=== PATIENT | male | born 1955 | race Caucasian/White ===

== ENCOUNTER 2019-12-29 08:22 | Outpatient (CLI) | payer MEDICARE, SELFPAY ==
--- NOTE | ~2019-12-29 | XR_ITS ---
EXAMINATION: XR knee LT 3V DATE: 12/29/2019 08:54 INDICATION: Left knee pain. TECHNIQUE: 3 views of left knee were obtained. COMPARISON: None. FINDINGS: Bone alignment is normal. No fracture. There is mild osteoarthritis of medial and patellofe moral compartments. No knee joint effusion. IMPRESSION: 1. Mild left knee osteoarthritis. Reviewed, dictated and finalized at location A. CHANGER
[2019-12-29 09:16] LABS: Hemoglobin A1C 11.3 % (<5.7)
== END 2019-12-29 08:23 | disposition home or self-care (01) ==
PROVIDERS: PCP Family Medicine; Visit Provider Family Medicine
DX: E11.59 Type 2 diabetes mellitus with other circulatory complications (principal); I10 Essential (primary) hypertension; M25.562 Pain in left knee
CPT/HCPCS: 36415; 73562; 83036

== ENCOUNTER 2020-07-10 09:07 | Outpatient (CLI) | payer MEDICARE, SELFPAY ==
[2020-07-10 09:18] LABS: Basophils Absolute Auto 0.04 K/mm3 (0.00-0.10); Basophils Percent Auto 0.8 % (0.0-1.0); Eosinophils Absolute Auto 0.13 K/mm3 (0.02-0.50); Eosinophils Percent Auto 2.6 % (1.0-6.0); Hematocrit 42.2 % (40.0-54.0); Hemoglobin 14.4 g/dL (14.0-18.0); Immature Granulocyte Absolute 0.02 K/mm3 (0.00-0.00); Immature Granulocyte Percent A 0.4 % (0.0-0.0); Lymphocytes Absolute Auto 1.58 K/mm3 (1.10-4.50); Lymphocytes Percent Auto 31.2 % (18.0-42.0); Mean Corpuscular HGB Conc 34.1 g/dL (32.0-36.0); Mean Corpuscular Hemoglobin 30.3 pg (27.0-31.0); Mean Corpuscular Volume 88.8 fL (78.0-102.0); Mean Platelet Volume 9.8 fl (8.7-11.0); Monocytes Absolute Auto 0.57 K/mm3 (0.10-0.90); Monocytes Percent Auto 11.2 % (2.0-11.0); Neutrophils Absolute Auto 2.7 K/mm3 (1.7-7.2); Neutrophils Percent Auto 53.8 % (50.0-70.0); Platelet Count Result 225 K/mm3 (150-420); Red Blood Count 4.75 M/mm3 (4.70-6.10); Red Cell Distribution Width 12.7 % (11.6-14.4); White Blood Count 5.1 K/mm3 (4.8-10.8)
[2020-07-10 09:39] LABS: Hemoglobin A1C 11.2 % (<5.7)
[2020-07-10 10:50] LABS: Alanine Aminotransferase 42 U/L (16-63); Albumin Level 3.6 g/dL (3.4-5.0); Alkaline Phosphatase 63 U/L (46-116); Anion Gap 7 mmol/L (8-16); Aspartate Amino Transferase 17 U/L (15-37); Bilirubin,Total 1.1 mg/dL (0.00-1.00); Blood Urea Nitrogen 14 mg/dL (7-18); Carbon Dioxide 29 mmol/L (21-32); Chloride 100 mmol/L (98-108); Cholesterol 213 mg/dL (0-200); Estimated Glomerular Filt Rate > 60; Glucose 343 mg/dL (70-99); HDL Direct 37 mg/dL (40-60); LDL Cholesterol Calculated 142 mg/dL (<130); Osmolality Calculated 296 mOsm/kg (285-295); Potassium 4.9 mmol/L (3.5-5.1); Sodium 136 mmol/L (136-145); Total Protein 6.7 g/dL (6.4-8.2); Triglycerides 171 mg/dL (0-150)
[2020-07-10 10:59] LABS: Thyroid Stimulating Hormone Reflex 1.61 u/IU/mL (0.36-3.74)
== END 2020-07-10 09:08 | disposition home or self-care (01) ==
LOC: CHSLAB 09:08
PROVIDERS: PCP Family Medicine; Visit Provider Family Medicine
DX: E11.65 Type 2 diabetes mellitus with hyperglycemia (principal); I10 Essential (primary) hypertension
CPT/HCPCS: 36415; 80053; 80061; 83036; 84443; 85025

== ENCOUNTER 2021-08-19 11:03 | Outpatient (CLI) | payer MEDICARE, SELFPAY ==
[2021-08-19 11:18] LABS: Hematocrit 40.7 % (37.0-46.0); Hemoglobin 13.4 g/dL (12.4-15.3); Mean Corpuscular HGB Conc 32.9 g/dL (32.0-36.0); Mean Corpuscular Hemoglobin 30.3 pg (27.0-31.0); Mean Corpuscular Volume 92.1 fL (78.0-102.0); Platelet Count Result 208 K/mm3 (150-420); Red Blood Count 4.42 M/mm3 (4.70-6.10); Red Cell Distribution Width 12.6 % (11.6-14.4)
[2021-08-19 11:22] LABS: Add Urine Microscopic? YES; Appearance Urine Clear (Clear); Bilirubin Urine Negative (Negative); Blood Urine Negative (Negative); Color Urine Light Yellow (Yellow); Glucose Urine UA 3+ (Negative); Ketones Urine Negative (Negative); Leukocyte Esterase Ur Negative (Negative); Nitrate Urine Negative (Negative); Protein Urine Negative (Negative); Urobilinogen Urine 0.2 mg/dL (0.2-1.0); pH Urine 5.5 (5.0-8.0)
[2021-08-19 11:27] LABS: Bacteria Urine None seen /hpf; RBC Urine None seen /hpf (0-2); WBC Urine None seen /hpf (0-3)
[2021-08-19 11:45] LABS: Alanine Aminotransferase 39 U/L (16-63); Albumin Level 3.3 g/dL (3.4-5.0); Alkaline Phosphatase 74 U/L (46-116); Anion Gap 4 mmol/L (8-16); Aspartate Amino Transferase 14 U/L (15-37); Bilirubin,Total 0.7 mg/dL (0.00-1.00); Blood Urea Nitrogen 21 mg/dL (7-18); Calcium 8.9 mg/dL (8.5-10.1); Carbon Dioxide 29 mmol/L (21-32); Chloride 100 mmol/L (98-108); Estimated Glomerular Filt Rate > 60; Osmolality Calculated 297 mOsm/kg (285-295); Potassium 5.3 mmol/L (3.5-5.1); Prostate Specific Antigen 1.6 ng/mL (< OR = 4.0); Sodium 133 mmol/L (136-145); Total Protein 6.9 g/dL (6.4-8.2)
[2021-08-19 11:50] LABS: CRP < 0.2 mg/dL (0.0-0.9); Glucose 419 mg/dL (70-99)
[2021-08-19 11:53] LABS: Thyroid Stimulating Hormone Reflex 1.82 u/IU/mL (0.36-3.74)
== END 2021-08-19 11:04 | disposition home or self-care (01) ==
LOC: CHSLAB 11:04
PROVIDERS: PCP Family Medicine; Visit Provider Family Medicine
DX: R63.4 Abnormal weight loss (principal); R35.1 Nocturia; E11.9 Type 2 diabetes mellitus without complications
CPT/HCPCS: 36415; 80053; 81001; 84153; 84443; 85027; 86140

== ENCOUNTER 2021-09-22 09:13 | Outpatient (CLI) | payer MEDICARE, SELFPAY ==
--- NOTE | ~2021-09-22 | XR_ITS ---
XR wrist RT 2V 09/22/2021 09:34 INDICATION: Right wrist pain PROCEDURE: 4 views right wrist COMPARISON: No prior studies for comparison. FINDINGS: Fracture, dislocation or subluxation is not identified. The soft tissues appear within norm al limits. No foreign bodies are identified. IMPRESSION: 1: NO ACUTE BONE OR JOINT ABNORMALITY IDENTIFIED. Reviewed, dictated and finalized at location B.
== END 2021-09-22 09:14 | disposition home or self-care (01) ==
LOC: CHSIMG 09:17
PROVIDERS: PCP Family Medicine; Visit Provider Nurse Practitioner Family
DX: S69.91XA Unspecified injury of right wrist, hand and finger(s), initial encounter (principal)
CPT/HCPCS: 73100

== ENCOUNTER 2021-10-29 10:33 | Outpatient (CLI) | payer MEDICARE, SELFPAY ==
--- NOTE | ~2021-10-29 | XR_ITS ---
XR knee LT 3V DATE: 10/29/2021 10:49 INDICATION: Injury 3 weeks ago. Left knee pain and swelling TECHNIQUE: AP, lateral, sunrise views COMPARISON: 12/29/2019 left knee FINDINGS: There is slight periarticular spurring at the patellofemoral and medial compartments. Joint spaces are well preserved. No fracture or dislocation or joint effusion is detected. No radiopaque interarticular loose body or chondral calcinosis. No periosteal reaction or bone destruction. IMPRESSION: Mild osteoarthritis Reviewed, dictated and finalized at location B. IMPRESSION: Mild osteoarthritis
== END 2021-10-29 10:34 | disposition home or self-care (01) ==
LOC: CHSIMG 10:36
PROVIDERS: PCP Family Medicine; Visit Provider Family Medicine
DX: M25.562 Pain in left knee (principal)
CPT/HCPCS: 73562

== ENCOUNTER 2021-11-04 08:33 | Outpatient (CLI) | payer MEDICARE, SELFPAY ==
--- NOTE | ~2021-11-04 | XR_ITS ---
XR knee LT 3V 11/04/2021 09:04 Indication: Left knee pain Procedure: 3 views left knee Comparison: 12/29/2019 Findings: No fracture, subluxation or dislocation. There is mild osteoarthritis. No significant joint effusion. Mild prepatellar soft tissue swelling. No discrete mass identified in the area of palpable concern. No foreign bodies. Impression: 1: No acute fracture. 2: Mild prepatellar soft tissue swelling. Reviewed, dictated and finalized at location B. Impression: 1: No acute fracture. 2: Mild prepatellar soft tissue swelling.
== END 2021-11-04 08:34 | disposition home or self-care (01) ==
LOC: CHSIMG 08:36
PROVIDERS: PCP Family Medicine; Visit Provider Family Medicine
DX: S80.252A Superficial foreign body, left knee, initial encounter (principal)
CPT/HCPCS: 73562

== ENCOUNTER 2021-11-14 08:52 | Outpatient (CLI) | payer MEDICARE, SELFPAY ==
--- NOTE | ~2021-11-14 | CT_ITS ---
EXAMINATION: CT knee LT wo con DATE: 11/14/2021 09:20 INDICATION: Infrapatellar foreign body at the anterior left knee. TECHNIQUE: High resolution computed tomography (CT) of the left knee was performed without intravenou s contrast. Additional sagittal and coronal reconstructions were performed. Automated exposure contro l and iterative reconstruction technique were employed. The dose-length product was 557.69 mGy-cm. COMPARISON: Left knee radiographs dated 10/29/2021 and 11/04/2021 FINDINGS: Bone alignment is normal. No fracture. Joint spaces appear normal on nonweightbearing imaging. No lef t knee joint effusion. There is prepatellar soft tissue swelling with approximately 3 x 3 x 1 cm ovoi d region of fluid density anterior to the inferior pole of the patella and proximal patellar tendon w hich could represent a hematoma/seroma or prepatellar bursitis soft tissues are otherwise unremarkabl e. No fracture fragments or foreign bodies identified. IMPRESSION: 1. 3 x 3 x 1 cm fluid collection anterior to the inferior patella and proximal patellar tendon which could represent a hematoma/seroma or prepatellar bursitis. No bone fragments or evident foreign ross s. 2. No left knee joint effusion or osseous abnormality. Reviewed, dictated and finalized at location A. IMPRESSION: 1. 3 x 3 x 1 cm fluid collection anterior to the inferior patella and proximal patellar tendon which could represent a hematoma/seroma or prepatellar bursitis . No bone fragments or evident foreign bodies. 2. No left knee joint effusion or osseous abnormality.
== END 2021-11-14 08:53 | disposition home or self-care (01) ==
LOC: CHSIMG 08:55
PROVIDERS: PCP Family Medicine; Visit Provider Family Medicine
DX: S80.252A Superficial foreign body, left knee, initial encounter (principal)
CPT/HCPCS: 73700

== ENCOUNTER 2022-01-29 11:02 | Emergency (ER) | payer MEDICARE, SELFPAY ==
[2022-01-29 11:14] VITALS: BP 156/74; PULSE 80; RESP 25; TEMP 36.4; O2SAT 97
--- NOTE | 2022-01-29 11:33 | ED.BACK ---
HPI - Back Pain/Injury General Stated Complaint: Back pain Time Seen by Provider: 01/29/22 11:27 Source: patient and family Mode of arrival: ambulatory Limitations: no limitations History of Present Illness HPI Narrative: This is a 66-year-old gentleman with a history of lower back pain presents after he was cutting wood with a 3 day history mid to lower back pain patient states that he followed with his chiropractor which gave him no relief. He rates the pain about 8/10 with no saddle paresthesias no sciatic pain or radiation. MD elicited complaint: back pain Pertinent past history: prior back pain Onset (ago): day(s) Timing: constant Severity: moderate Pain scale (0-10): 8 Quality: spasming Related Data Allergies Allergy/AdvReac Type Severity Reaction Status Date / Time No Known Allergies Allergy Verified 11/04/21 07:10 Review of Systems Review of Systems: All systems reviewed & are unremarkable except as noted in HPI and below PMFSH Past Medical History Medical History BMI 30.0-30.9,adult Cellulitis of finger of right hand Encounter for other specified surgical aftercare HTN (hypertension) Hypertension associated with type 2 diabetes mellitus Incarcerated ventral hernia Uncontrolled diabetes mellitus Surgical History Surgical History History of back surgery Family History Family History Mother Alzheimers disease Diabetes mellitus Father Diabetes mellitus Colon cancer Prostate carcinoma Coronary artery disease Sibling Diabetes mellitus Sibling Diabetes mellitus Sibling Diabetes mellitus Social History Social History Smoking packs per day: 2 Smoking cigarettes per day: 40.0 Years smoked: 2 Smoking pack-years: 4.00 Smoking status: Former smoker Tobacco type: cigarettes Second hand tobacco smoke exposure: Yes Alcohol intake: current Drinks per week: 1 Substance use: never Substance use type: does not use Gender identity (if verbalized by the patient): Male Spiritual care concerns: No Agree to blood products: Yes Exam Const: General: healthy appearing Nutritional Appearance: well nourished Limitations: no limitations HENMT: Head: normal to inspection Face/Nose/Sinus: Normal external nose present Mouth: Yes Normal oral and palatal mucosa present Eyes: Conjunctivae: conjunctivae normal Pupils: Equal, round and reactive pupils present EOM: EOMs intact bilaterally Direct Ophthalmoscopy: no photophobia Neck: Neck: normal visual inspection Chest: Chest palpation & inspection: normal inspection of the chest Resp: Effort & Inspection: normal respiratory effort Cardio: Rate: regular rate Rhythm: regular rhythm GI: Auscultation: normal bowel sounds : General: Yes bladder normal to palpation Back/Spine/Pelvis: Back: no CVA tenderness Skin: General skin exam: normal color Rashes: no rashes Wounds: no wounds Neuro: General: patient oriented x3 Cranial nerves: Yes Nystagmus not present Speech: normal speech Extrem: Other: Midback dist discomfort with some bilateral paravertebral tenderness with palpation Course Course Emergency Course: reassessment of patient pain level has improved with some muscle relaxant and IM Toradol Vital Signs Vital signs: Vital Signs Temperature 36.4 C 01/29/22 11:14 Pulse Rate 80 01/29/22 11:14 Respiratory Rate 25 H 01/29/22 11:14 Blood Pressure 156/74 H 01/29/22 11:14 Pulse Oximetry 97 01/29/22 11:14 Oxygen Delivery Room Air 01/29/22 11:14 Temperature 36.4 C 01/29/22 11:14 Pulse Rate 80 01/29/22 11:14 Respiratory Rate 25 H 01/29/22 11:14 Blood Pressure 156/74 H 01/29/22 11:14 Pulse Oximetry 97 01/29/22 11:14 Oxygen Delivery Room Air
[2022-01-29] MEDS: KETOROLAC (*BKC) 60 MG/2 ML VIAL IM (11:48)
[2022-01-29] MEDS: ORPHENADRINE CITRATE 30 MG/ML 2 ML VIAL 60 MG IM (11:49)
[2022-01-29 12:16] VITALS: BP 157/74; PULSE 80; RESP 20; TEMP 36.4; O2SAT 94
== END 2022-01-29 12:20 | disposition home or self-care (01) ==
LOC: CHSED 11:45
PROVIDERS: Emergency Provider Emergency Medicine; PCP Family Medicine
DX: M54.50 Low back pain, unspecified (principal); I10 Essential (primary) hypertension; Z87.891 Personal history of nicotine dependence
CPT/HCPCS: 96372; 99284; J1885; J2360

== ENCOUNTER 2022-05-18 09:00 | Outpatient (CLI) | payer MEDICARE, SELFPAY ==
[2022-05-18 19:31] LABS: Basophils Absolute Auto 0.1 K/mm3 (0.0-0.1); Basophils Percent Auto 1.2 % (0.2-1.2); Eosinophils Absolute Auto 0.2 K/mm3 (0-0.3); Eosinophils Percent Auto 4.2 % (0-4.4); Hematocrit 46.7 % (42.0-52.0); Hemoglobin 15.4 g/dL (14.0-18.0); Immature Granulocyte Absolute 0.02 K/mm3 (0.00-0.031); Immature Granulocyte Percent A 0.5 % (0-0.5); Lymphocytes Absolute Auto 1.49 K/mm3 (0.9-3.2); Lymphocytes Percent Auto 34.9 % (18.3-44.2); Mean Corpuscular Hemoglobin 30.7 pg (26-34); Mean Corpuscular Volume 93.2 fl (80-100); Mean Platelet Volume 10.9 fl (7.4-10.4); Monocytes Absolute Auto 0.5 K/mm3 (0.1-0.6); Monocytes Percent Auto 11.5 % (2.6-8.5); Neutrophils Percent Auto 47.7 % (45.5-73.1); Platelet Count Result 220 k/mm3 (150-375); Red Blood Count 5.01 M/mm3 (4.6-6.20); Red Cell Distribution Width 12.8 % (11.5-14.5); White Blood Count 4.3 K/mm3 (4.5-10.0)
[2022-05-18 20:13] LABS: Alanine Aminotransferase 33 U/L (6-50); Albumin Level 4.5 g/dL (3.5-5.1); Alkaline Phosphatase 89 U/L (38-126); Anion Gap 7 mmol/L (8-16); Aspartate Amino Transferase 23 U/L (17-59); Blood Urea Nitrogen 18 mg/dL (9-20); Calcium 9.3 mg/dL (8.4-10.2); Carbon Dioxide 30 mmol/L (22-30); Chloride 96 mmol/L (98-107); Cholesterol 285 mg/dL (0-200); Estimated Glomerular Filt Rate > 60; Glucose 458 mg/dL (65-110); HDL Direct 39 mg/dL; Potassium 4.8 mmol/L (3.4-5.0); Sodium 133 mmol/L (137-145); Triglycerides 193 mg/dL (<150)
[2022-05-18 20:20] LABS: Microalbumin Urine Random 10.5 mg/L (0-16.7)
[2022-05-18 20:24] LABS: LDL Cholesterol Direct 183 mg/dL
[2022-05-18 20:42] LABS: Prostate Specific Antigen 1.7 ng/mL (< OR = 4.0)
[2022-05-18 21:12] LABS: Hemoglobin A1C 13.6 % (<5.7)
[2022-05-18 21:18] LABS: Folic Acid 12.3 ng/mL (2.76->20)
[2022-05-20 13:22] LABS: Glutamic acid decarboxylase AA <5 IU/mL (<5)
[2022-05-21 03:43] LABS: LH 5.2 mIU/mL (1.6-15.2)
[2022-05-22 14:24] LABS: Testosterone Free 27.9 pg/mL (35.0-155.0); Testosterone Total 154 ng/dL (250-1100)
== END 2022-05-18 09:01 | disposition home or self-care (01) ==
LOC: ANHGOSHLAB 09:01
PROVIDERS: PCP Family Medicine; Visit Provider Internal Medicine
DX: E11.65 Type 2 diabetes mellitus with hyperglycemia (principal); E29.1 Testicular hypofunction; I10 Essential (primary) hypertension; R53.83 Other fatigue; R35.89 Other polyuria; Z12.5 Encounter for screening for malignant neoplasm of prostate
CPT/HCPCS: 36415; 80053; 80061; 82043; 82607; 82746; 83002; 83036; 84153; 84402; 84403; 84443; 85025; 86341

== ENCOUNTER 2022-09-16 11:28 | Emergency (ER) | payer MEDICARE, SELFPAY ==
[2022-09-16] VITALS (24 sets, daily range): BP systolic 105–137; BP diastolic 58–85; PULSE 70–83; RESP 14–26; TEMP 36.1; O2SAT 95–100
--- NOTE | ~2022-09-16 | CT_ITS ---
EXAMINATION: CT thoracic lumbar wo con DATE: 09/16/2022 13:11 INDICATION: Back injury. Fall. Neck pain. TECHNIQUE: Computed tomography (CT) of the thoracic and lumbar spine was performed without intravenou s contrast. Automated exposure control and iterative reconstruction technique were employed. The dose -length product was 1939.38 mGy-cm. COMPARISON: None FINDINGS: CT THORACIC SPINE: There is 5 degrees dextrocurvature of thoracic spine. There are Schmorl's nodes at multiple levels. There is mildly decreased disc height from T3-T4 through T7-T8. There is multilevel facet joint osteoarthritis, mild at most levels. There is severe facet joint osteoarthritis on the r ight at T1-T2 and T3-T4 and on the left at T2-T3. On the right, there is mild neural foraminal stenos is at T1-T2 and T3-T4. On the left, there is mild neural foraminal stenosis at T1-T2, T2-T3, and T3-T 4. There is mild central canal stenosis at T4-T5 and T6-T7. CT LUMBAR SPINE: Bone alignment is normal. There is mild chronic anterior wedging of L1 vertebral bod y. There is mildly decreased disc height at L1-L2, L2-L3, and L3-L4. The following disc levels are sp ecifically discussed: L1-L2: The disc is bulging. There is mild bilateral facet joint osteoarthritis. There is mild bilater al neural foraminal stenosis. There is mild central canal stenosis. L2-L3: The disc is bulging. There is mild bilateral facet joint osteoarthritis. There is mild bilater al neural foraminal stenosis. There is mild central canal stenosis. L3-L4: The disc is bulging. There is mild bilateral facet joint osteoarthritis. There is mild bilater al neural foraminal stenosis. There is mild central canal stenosis. L4-L5: The disc is bulging. There is mild bilateral facet joint osteoarthritis. There is moderate rig ht and mild left neural foraminal stenosis. There is mild central canal stenosis. L5-S1: The disc is bulging. There is mild bilateral facet joint osteoarthritis. There is mild right n eural foraminal stenosis. There is mild central canal stenosis. IMPRESSION: 1. No fracture. 2. Mild thoracic and lumbar spondylosis. Reviewed, dictated and finalized at location A.
--- NOTE | ~2022-09-16 | CT_ITS ---
EXAMINATION: CT brain wo con DATE: 09/16/2022 13:11 INDICATION: Neck pain post fall TECHNIQUE: Computed tomography (CT) of the head was performed without intravenous contrast. Sagittal and coronal reconstructions were performed. The mA was adjusted according to patient size. Iterative reconstruction technique was employed. The dose-length product was 681.00 mGy-cm. COMPARISON: head CT dated 05/15/2018 and MRI dated 05/16/2018 FINDINGS: No fracture. No acute intracranial hemorrhage, acute infarction or abnormal extra axial fluid collect ion. Again seen is a small lacunar infarct versus prominent perivascular space at the inferior left b christel ganglia. Ventricles are normal and symmetric. No mass/mass effect. The orbits, paranasal sinuses and mastoid air cells are normal. 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 IMPRESSION: 1. No fracture or acute intracranial process. 2. 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 Reviewed, dictated and finalized at location B. IMPRESSION: 1. No fracture or acute intracranial process. 2. Unchanged small old lacunar infarct versus prominent perivascular space at t he inferior left basal ganglia.
--- NOTE | ~2022-09-16 | CT_ITS ---
EXAMINATION: CT cervical spine wo con DATE: 09/16/2022 13:11 INDICATION: Neck pain. Fall. TECHNIQUE: Computed tomography (CT) of the cervical spine was performed without intravenous contrast. Automated exposure control and iterative reconstruction technique were employed. The dose-length pro duct was 374.70 mGy-cm. COMPARISON: None FINDINGS: There is 7 degrees dextrocurvature of cervical spine. There is mild chronic anterior wedgin g of T1 vertebral body. Intervertebral disc heights are normal. The following disc levels are specifi jasmyne discussed: C2-C3: There is no uncovertebral joint osteoarthritis. There is mild right facet joint osteoarthritis . There is no neural foraminal stenosis. There is no central canal stenosis. C3-C4: There is mild left uncovertebral joint osteoarthritis. There is mild right and moderate left f acet joint osteoarthritis. There is mild left neural foraminal stenosis. There is no central canal st enosis. C4-C5: There is mild left uncovertebral joint osteoarthritis. There is severe left facet joint osteoa rthritis. There is mild left neural foraminal stenosis. There is no central canal stenosis. C5-C6: There is no uncovertebral joint osteoarthritis. There is mild bilateral facet joint osteoarthr itis. There is no neural foraminal stenosis. There is no central canal stenosis. C6-C7: There is no uncovertebral joint osteoarthritis. There is mild bilateral facet joint osteoarthr itis. There is no neural foraminal stenosis. There is no central canal stenosis. C7-T1: There is no uncovertebral joint osteoarthritis. There is moderate bilateral facet joint osteoa rthritis. There is no neural foraminal stenosis. There is no central canal stenosis. IMPRESSION: 1. No fracture. 2. Mild cervical spondylosis. Reviewed, dictated and finalized at location A.
--- NOTE | 2022-09-16 12:51 | ED.FALL ---
HPI - Fall General Chief Complaint: Fall Stated Complaint: fall Time Seen by Provider: 09/16/22 12:04 History of Present Illness HPI Narrative: Patient is a 67-year-old male presenting with neck pain. Patient states that he had a fall several weeks ago after a refrigerator fell on him. States that he had some neck and back pain after that but he toughed it out. Unfortunately today he again slipped on some stairs striking his neck and lower back. He is unsure if he struck his head. No loss of consciousness. Since that time he has had severe neck and lower back pain. States that the pain radiates down his left shoulder. Took some Aleve earlier with some relief. Reports some numbness down his left arm but no weakness. No further complaints. Related Data Home Medications Medication Instructions Recorded Confirmed antiarthritic combination no.2 900 mg PO 05/18/22 08/03/22 mg tablet (glucosamine-chondroitin) cholecalciferol (vitamin D3) 125 125 mcg PO DAILY 05/18/22 08/03/22 mcg (5,000 unit) capsule magnesium citrate 100 mg capsule 100 mg PO DAILY 05/18/22 08/03/22 mecobalamin (vitamin B12) 2,500 mcg PO 05/18/22 08/03/22 mcg chewable tablet vitamin K2 100 mcg capsule 100 mcg PO DAILY 05/18/22 08/03/22 zinc acetate 50 mg (zinc) capsule 50 mg PO DAILY 05/18/22 08/03/22 (Galzin) Allergies Allergy/AdvReac Type Severity Reaction Status Date / Time No Known Allergies Allergy Verified 09/16/22 11:44 Review of Systems Review of Systems: All systems reviewed & are unremarkable except as noted in HPI and below PMFSH Past Medical History Medical History BMI 30.0-30.9,adult Cellulitis of finger of right hand Encounter for other specified surgical aftercare HTN (hypertension) Hyperlipidemia Hypertension associated with type 2 diabetes mellitus Incarcerated ventral hernia Uncontrolled diabetes mellitus Surgical History Surgical History History of back surgery Family History Family History Mother Alzheimers disease Diabetes mellitus Father Diabetes mellitus Colon cancer Prostate carcinoma Coronary artery disease Sibling Diabetes mellitus Sibling Diabetes mellitus Sibling Diabetes mellitus Social History Social History Smoking packs per day: 2 Smoking cigarettes per day: 40.0 Years smoked: 2 Smoking pack-years: 4.00 Smoking status: Former smoker Tobacco type: cigarettes Second hand tobacco smoke exposure: Yes Alcohol intake: current Drinks per week: 1 Substance use: never Substance use type: does not use Lack of Transportation: No Current Housing: Decline to Answer Concerned About Future Housing: Decline to Answer Difficulty Paying Gas/Electric Bills: Decline to Answer Difficulty Paying for Meds: Decline to Answer Currently Unemployed: Decline to Answer Education: Decline to Answer Difficulty w/ Childcare or Family Care: Decline to Answer Gender identity (if verbalized by the patient): Male Spiritual care concerns: No Agree to blood products: Yes Exam Narrative: GENERAL: Uncomfortable appearing, pleasant and cooperative HEAD: Normocephalic, atraumatic. EYES: PERRLA and EOMI. ENT: Nares clear, no rhinorrhea or epistaxis. Mucous membranes moist. NECK: C-collar in place, tenderness over lower cervical/upper thoracic spine BACK: Midline tenderness lower lumbar spine CHEST: Clear to auscultation. No respiratory distress. HEART: Regular rate and rhythm. ABDOMEN: Soft, nontender, nondistended EXTREMITIES: Normal range of motion. No edema. SKIN: Warm, dry, no rash. NEURO: No focal deficits. Alert and oriented x3. PSYCH: Normal mood and affect. Course Vital Signs Vital signs: Vital Signs Temper
[2022-09-16] MEDS: HYDROmorphone HCL INJ (*CRX) 1 MG/ML SYR 0.5 MG IV PUSH (12:57)
[2022-09-16] MEDS: LACTATED RINGERS 1,000 ML 999 ML IV CONT (14:53)
[2022-09-16] MEDS: KETOROLAC 30 MG/ML VIAL (*BKC) IV PUSH (14:54)
[2022-09-16] MEDS: LORazepam INJ (*CRX) 2 MG/ML VIAL 1 MG IV PUSH (14:54)
[2022-09-16] MEDS: CYCLOBENZAPRINE HCL 10 MG TABLET PO (17:40)
== END 2022-09-16 17:43 | disposition home or self-care (01) ==
PROVIDERS: Emergency Provider Emergency Medicine; PCP Internal Medicine
DX: S19.9XXA Unspecified injury of neck, initial encounter (principal); M62.838 Other muscle spasm; I10 Essential (primary) hypertension; E11.9 Type 2 diabetes mellitus without complications; I15.2 Hypertension secondary to endocrine disorders; E78.5 Hyperlipidemia, unspecified; M47.816 Spondylosis without myelopathy or radiculopathy, lumbar region; M47.812 Spondylosis without myelopathy or radiculopathy, cervical region; Z87.891 Personal history of nicotine dependence; Z79.4 Long term (current) use of insulin; Z79.84 Long term (current) use of oral hypoglycemic drugs; Z79.85 Long-term (current) use of injectable non-insulin antidiabetic drugs; W10.9XXA Fall (on) (from) unspecified stairs and steps, initial encounter
CPT/HCPCS: 70450; 72125; 72128; 72131; 96361; 96374; 96375; 99284; A9270; J1170; J1885; J2060; J7120

== ENCOUNTER 2022-09-20 09:48 | Emergency (ER) | payer MEDICARE, SELFPAY ==
--- NOTE | ~2022-09-20 | XR_ITS ---
EXAMINATION: XR foot LT min 3V DATE: 09/20/2022 11:01 INDICATION: Left foot pain and swelling, possible foreign body TECHNIQUE: Dorsoplantar, lateral, and 2 oblique views of the left foot were obtained. COMPARISON: 02/29/2016 FINDINGS: Bone alignment is normal. There is no acute fracture. There is mild osteoarthritis of multi ple interphalangeal joints. There is a 3 mm linear radiopaque foreign body projecting at the plantar aspect of the foot medial to the first proximal phalanx. IMPRESSION: 1. Linear radiopaque foreign body projecting in the plantar aspect of the first toe. 2. No acute osseous abnormality. Reviewed, dictated and finalized at location A.
--- NOTE | ~2022-09-20 | US_ITS ---
EXAMINATION: US venous doppler [facility] DATE: 09/20/2022 12:23 INDICATION: Left lower limb redness and swelling TECHNIQUE: Longoria scale images without and with compression and Doppler images of the left lower extrem ity veins were obtained. COMPARISON: None FINDINGS: The left common femoral vein, profunda femoral vein, femoral vein, popliteal vein, peroneal trunk, posterior tibial veins, and greater saphenous vein are patent. IMPRESSION: 1. Patent left lower extremity veins. No evidence of deep venous thrombosis. Reviewed, dictated and finalized at location A.
[2022-09-20 09:49] VITALS: BP 136/64; PULSE 80; RESP 20; TEMP 36.4; O2SAT 100
--- NOTE | 2022-09-20 10:24 | ED.WOUNDLAC ---
HPI - Wound/Laceration General Chief Complaint: Wound/Laceration Stated Complaint: infection in my foot Time Seen by Provider: 09/20/22 10:08 Source: patient Mode of arrival: ambulatory Limitations: no limitations History of Present Illness HPI narrative: Patient is a 67-year-old male, with PMH of DM, who presents to the ED with report of left foot and lower leg pain, swelling, redness. Patient reports he first noticed the pain and redness a few days ago. He did have a mechanical fall a few days ago and was seen here in the ED, diagnosed with a cervical strain. He was not having pain in his foot at that time. He reports the pain in his foot is worst around his first and second toes on the plantar surface. He denies stepping on anything that he is aware of. He has since developed worsening pain, swelling, redness streaking up his dorsal foot into his ankle and lower leg. Pain extending to his lower leg and calf. Patient denies any fevers. Related Data Home Medications Medication Instructions Recorded Confirmed antiarthritic combination no.2 900 mg PO 05/18/22 08/03/22 mg tablet (glucosamine-chondroitin) cholecalciferol (vitamin D3) 125 125 mcg PO DAILY 05/18/22 08/03/22 mcg (5,000 unit) capsule magnesium citrate 100 mg capsule 100 mg PO DAILY 05/18/22 08/03/22 mecobalamin (vitamin B12) 2,500 mcg PO 05/18/22 08/03/22 mcg chewable tablet vitamin K2 100 mcg capsule 100 mcg PO DAILY 05/18/22 08/03/22 zinc acetate 50 mg (zinc) capsule 50 mg PO DAILY 05/18/22 08/03/22 (Galzin) Allergies Allergy/AdvReac Type Severity Reaction Status Date / Time No Known Allergies Allergy Verified 09/16/22 11:44 Review of Systems Review of Systems: CONSTITUTIONAL: Denies fever, chills, or sweats. SKIN: See HPI. MUSCULOSKELETAL: See HPI. NEUROLOGIC: Denies tingling, numbness, or weakness. All systems reviewed & are unremarkable except as noted in HPI and below PMFSH Past Medical History Medical History BMI 30.0-30.9,adult Cellulitis of finger of right hand Encounter for other specified surgical aftercare HTN (hypertension) Hyperlipidemia Hypertension associated with type 2 diabetes mellitus Incarcerated ventral hernia Uncontrolled diabetes mellitus Surgical History Surgical History History of back surgery Family History Family History Mother Alzheimers disease Diabetes mellitus Father Diabetes mellitus Colon cancer Prostate carcinoma Coronary artery disease Sibling Diabetes mellitus Sibling Diabetes mellitus Sibling Diabetes mellitus Social History Social History Smoking packs per day: 2 Smoking cigarettes per day: 40.0 Years smoked: 2 Smoking pack-years: 4.00 Smoking status: Former smoker Tobacco type: cigarettes Second hand tobacco smoke exposure: Yes Alcohol intake: current Drinks per week: 1 Substance use: never Substance use type: does not use Lack of Transportation: No Current Housing: Decline to Answer Concerned About Future Housing: Decline to Answer Difficulty Paying Gas/Electric Bills: Decline to Answer Difficulty Paying for Meds: Decline to Answer Currently Unemployed: Decline to Answer Education: Decline to Answer Difficulty w/ Childcare or Family Care: Decline to Answer Gender identity (if verbalized by the patient): Male Spiritual care concerns: No Agree to blood products: Yes Exam Narrative: GENERAL: Well appearing, well-nourished, non-toxic, in no acute distress. HEAD: Normocephalic, atraumatic. NECK: Supple. No adenopathy, no masses. RESPIRATORY: Airway patent, respirations nonlabored. Clear to auscultation bilaterally, no rales, rhonchi, wheezing. CARDIOVASCULAR: Regular rate an
[2022-09-20 11:01] LABS: Basophils Percent Auto 0.5 % (0.2-1.2); Eosinophils Absolute Auto 0.1 K/mm3 (0-0.3); Eosinophils Percent Auto 1.3 % (0-4.4); Hematocrit 43.3 % (42.0-52.0); Hemoglobin 14.2 g/dL (14.0-18.0); Immature Granulocyte Absolute 0.05 K/mm3 (0.00-0.031); Immature Granulocyte Percent A 0.6 % (0-0.5); Lymphocytes Absolute Auto 1.36 K/mm3 (0.9-3.2); Lymphocytes Percent Auto 15.5 % (18.3-44.2); Mean Corpuscular HGB Conc 32.8 g/dl (32-36); Mean Corpuscular Hemoglobin 30.3 pg (26-34); Mean Corpuscular Volume 92.5 fl (80-100); Mean Platelet Volume 10.2 fl (7.4-10.4); Monocytes Percent Auto 11.4 % (2.6-8.5); Neutrophils Absolute Auto 6.2 K/mm3 (1.3-6.7); Neutrophils Percent Auto 70.7 % (45.5-73.1); Platelet Count Result 202 k/mm3 (150-375); Red Blood Count 4.68 M/mm3 (4.6-6.20); Red Cell Distribution Width 12.7 % (11.5-14.5); White Blood Count 8.8 K/mm3 (4.5-10.0)
[2022-09-20 11:11] LABS: Lactic Acid Reflex 0.8 mmol/L (0.7-2.0)
[2022-09-20 11:15] LABS: Alanine Aminotransferase 22 U/L (6-50); Albumin Level 4.2 g/dL (3.5-5.1); Alkaline Phosphatase 76 U/L (38-126); Anion Gap 5 mmol/L (8-16); Aspartate Amino Transferase 18 U/L (17-59); Bilirubin,Total 1.6 mg/dL (0.2-1.3); Blood Urea Nitrogen 17 mg/dL (9-20); CRP 7.7 mg/dL (<1.0); Calcium 9.7 mg/dL (8.4-10.2); Carbon Dioxide 32 mmol/L (22-30); Chloride 96 mmol/L (98-107); Estimated CRCL calculation 116 ml/min; Estimated Glomerular Filt Rate > 60; Glucose 243 mg/dL (65-110); Potassium 4.3 mmol/L (3.4-5.0); Sodium 133 mmol/L (137-145)
[2022-09-20 11:32] LABS: Erythrocyte Sedimentation Rate 73 mm/hr (0-20)
[2022-09-20] MEDS: DOXYCYCLINE HYCLATE 100 MG TABLET PO (13:19)
[2022-09-20] MEDS: levoFLOXacin 750 MG TABLET PO (13:20)
== END 2022-09-20 13:37 | disposition home or self-care (01) ==
PROVIDERS: Emergency Provider Physician Assistant; PCP Internal Medicine
DX: L03.116 Cellulitis of left lower limb (principal); S90.852A Superficial foreign body, left foot, initial encounter; B35.3 Tinea pedis; E78.5 Hyperlipidemia, unspecified; E11.9 Type 2 diabetes mellitus without complications; I15.2 Hypertension secondary to endocrine disorders; Z87.891 Personal history of nicotine dependence; Z79.85 Long-term (current) use of injectable non-insulin antidiabetic drugs; Z79.84 Long term (current) use of oral hypoglycemic drugs; Z79.4 Long term (current) use of insulin; W45.8XXA Other foreign body or object entering through skin, initial encounter
CPT/HCPCS: 28190; 36415; 73630; 80053; 83605; 85025; 85652; 86140; 87070; 87147; 87181; 87186; 87205; 93971; 99284; A9270

== ENCOUNTER 2022-09-23 12:22 | Inpatient (IN) | payer MEDICARE, SELFPAY ==
[2022-09-23] VITALS (17 sets, daily range): BP systolic 120–156; BP diastolic 56–82; PULSE 72–90; RESP 14–21; TEMP 36.6–36.8; O2SAT 92–99; BMI 28.1
--- NOTE | ~2022-09-23 | XR_ITS ---
EXAMINATION: XR foot LT min 3V DATE: 09/23/2022 13:16 INDICATION: Left foot infection. TECHNIQUE: 4 views of left foot were obtained. COMPARISON: Left foot radiographs 09/20/2022 FINDINGS: Bone alignment is normal. No fracture. There is mild osteoarthritis of first interphalangea l joint. There are enthesophytes at the posterior and plantar aspects of calcaneal tuberosity. IMPRESSION: 1. No evidence of osteomyelitis. Reviewed, dictated and finalized at location A.
--- NOTE | ~2022-09-23 | MR_ITS ---
EXAMINATION: MR foot LT wo/w con DATE: 09/24/2022 09:41 INDICATION: Left foot infection. Assess for osteomyelitis. TECHNIQUE: Magnetic resonance imaging (MRI) of the left fore/mid foot was performed without intraveno us contrast. Sequences included sagittal T1-weighted FSE, sagittal fluid sensitive FSE STIR, coronal PD-weighted FS FSE, coronal T1-weighted FSE, axial PD-weighted FS FSE, and axial PD-weighted FSE. COMPARISON: Left foot radiographs dated 09/23/2022 FINDINGS: There is focal soft tissue swelling with subcutaneous edema plantar to the base of the first and seco nd proximal phalanges underlying a marker presumably indicating the site of the recently removed meta llic foreign body. There is a residual small focus of susceptibility artifact in the soft tissues sara ntar to the head of the first proximal phalanx with tiny splenic foreign body evident on the prior ra diographs approximately 4-5 mm deep to the skin surface. No abscesses, joint effusions or other abnor mal fluid collections. Bone alignment is normal. No fracture, osteomyelitis or other pathologic marro w replacing process. Lisfranc ligament complex and the collateral ligament complex at the metatarsoph alangeal and interphalangeal joints are normal. Visualized portion of the flexor and extensor tendons are normal. There is more diffuse subcutaneous edema over the dorsum of the foot and moderate fatty atrophy and diffuse increased fluid signal and non masslike enhancement throughout the intrinsic musc ulature of the visualized fore and midfoot suggestive of sequela of acute or chronic diabetic neuropa thy. IMPRESSION: 1. Focal soft tissue edema Plantar to the base of the first and second toes presumably at the site of a reported recently remove d foreign body. There is additional tiny retained foreign body in the soft tissues plantar to the hea d of the first proximal phalanx. 2. No abscess, septic arthritis or osteomyelitis. 3. Fatty atrophy and increased fluid signal the intrinsic musculature of the visualized foot likely s equela of acute on chronic diabetic neuropathy. Reviewed, dictated and finalized at location A. IMPRESSION: 1. Focal soft tissue edema Plantar to the base of the first and second toes presumably at the site of a re ported recently removed foreign body. There is additional tiny retained foreign body in the soft tissues plantar to the head of the first proximal phalanx. 2. No abscess, septic arthritis or osteomyelitis. 3. Fatty atrophy and increased fluid signal the intrinsic musculature of the vi sualized foot likely sequela of acute on chronic diabetic neuropathy.
--- NOTE | 2022-09-23 12:47 | ED.GENADULT ---
HPI - General Adult General Chief complaint: Unspecified Stated complaint: sent by PCP for IV abx Time Seen by Provider: 09/23/22 12:29 History of Present Illness HPI narrative: 67-year-old male presented to ED for worsening cellulitis. Patient was evaluated emergency department 3 days ago and had a metallic foreign body removed from the sole of his foot and was started on 2 oral antibiotics. Patient had follow-up with his primary care physician today and was referred to the emergency department for further evaluation Related Data Home Medications Medication Instructions Recorded Confirmed antiarthritic combination no.2 900 5 mg PO DAILY 05/18/22 09/23/22 mg tablet (glucosamine-chondroitin) cholecalciferol (vitamin D3) 125 125 mcg PO DAILY 05/18/22 09/23/22 mcg (5,000 unit) capsule magnesium citrate 100 mg capsule 100 mg PO DAILY 05/18/22 09/23/22 mecobalamin (vitamin B12) 2,500 2,500 mcg PO DAILY 05/18/22 09/23/22 mcg chewable tablet vitamin K2 100 mcg capsule 100 mcg PO DAILY 05/18/22 09/23/22 zinc acetate 50 mg (zinc) capsule 50 mg PO DAILY 05/18/22 09/23/22 (Galzin) Allergies Allergy/AdvReac Type Severity Reaction Status Date / Time No Known Allergies Allergy Verified 09/23/22 10:56 Review of Systems Review of Systems: All systems reviewed & are unremarkable except as noted in HPI and below PMFSH Past Medical History Medical History (Updated 09/23/22 @ 20:30 by Mani Lombardi MD) Hyperlipidemia Hypertension Insulin dependent type 2 diabetes mellitus Kidney stones Surgical History Surgical History (Updated 09/23/22 @ 14:27 by Selena Cohn PA-C) History of lumbar surgery (2010) L4-L5 decompression. History of ventral hernia repair (01/2019) Repair of incarcerated ventral hernia. Family History Family History Mother Alzheimers disease Diabetes mellitus Father Diabetes mellitus Colon cancer Prostate carcinoma Coronary artery disease Sibling Diabetes mellitus Sibling Diabetes mellitus Sibling Diabetes mellitus Social History Social History (Updated 09/23/22 @ 14:27 by Selena Cohn PA-C) Social History: Surrogate medical decision maker: Winnie Sifuentesrader, spouse. Code status: Full code. Smoking packs per day: 2 Smoking cigarettes per day: 40.0 Years smoked: 2 Smoking pack-years: 4.00 Smoking status: Former smoker Second hand tobacco smoke exposure: Yes Alcohol intake: current Drinks per week: 1 Substance use: never Substance use type: does not use Lack of Transportation: No Lack of Food: Never True Current Housing: Decline to Answer Concerned About Future Housing: Decline to Answer Difficulty Paying Gas/Electric Bills: Decline to Answer Difficulty Paying for Meds: Decline to Answer Currently Unemployed: Decline to Answer Education: Decline to Answer Difficulty w/ Childcare or Family Care: Decline to Answer Additional living arrangements comments: Lives with spouse in [place]. Additional occupation/education comments: Retired. Spiritual care concerns: No Agree to blood products: Yes Exam Narrative: APPEARANCE: Well appearing, no pain, no distress, well-nourished. HEAD: normocephalic, atraumatic. EYES: PERRLA/EOMI, conjunctivae clear. NOSE: Normal no drainage NECK: Supple. No adenopathy, no masses. RESPIRATORY: Airway patent, respirations nonlabored. Clear to auscultation bilaterally, no rales, rhonchi, wheezing. CARDIOVASCULAR: Regular rate and rhythm without murmurs rubs or gallops. ABDOMINAL: Soft, nontender, nondistended, normal bowel sounds MUSCULOSKELETAL: Moves all extremities. Strength/ROM intact, No edema, No calf tenderness. NEURO: Alert. Cranial nerves II through XII intact. Good gait. Good coordination SKIN: Erythema of dorsal of left foot radiating up the left calf with tenderness of mid left calf. Patient also has eryt
[2022-09-23 12:48] LABS: Basophils Absolute Auto 0.1 K/mm3 (0.0-0.1); Basophils Percent Auto 0.6 % (0.2-1.2); Eosinophils Absolute Auto 0.1 K/mm3 (0-0.3); Hematocrit 42.9 % (42.0-52.0); Immature Granulocyte Absolute 0.03 K/mm3 (0.00-0.031); Immature Granulocyte Percent A 0.3 % (0-0.5); Lymphocytes Absolute Auto 1.25 K/mm3 (0.9-3.2); Lymphocytes Percent Auto 12.1 % (18.3-44.2); Mean Corpuscular HGB Conc 32.6 g/dl (32-36); Mean Corpuscular Hemoglobin 30.4 pg (26-34); Mean Corpuscular Volume 93.3 fl (80-100); Mean Platelet Volume 9.8 fl (7.4-10.4); Monocytes Percent Auto 9.9 % (2.6-8.5); Neutrophils Absolute Auto 7.9 K/mm3 (1.3-6.7); Neutrophils Percent Auto 76.1 % (45.5-73.1); Platelet Count Result 256 k/mm3 (150-375); Red Cell Distribution Width 12.5 % (11.5-14.5); White Blood Count 10.4 K/mm3 (4.5-10.0)
[2022-09-23 12:59] LABS: Lactic Acid Reflex 1.2 mmol/L (0.7-2.0); Prothrombin Time 13.2 Seconds (11.1-14.7)
[2022-09-23 13:00] LABS: Partial Thromboplastin Time 27.4 SECONDS (22.3-36.8)
[2022-09-23 13:02] LABS: Alanine Aminotransferase 23 U/L (6-50); Albumin Level 4.4 g/dL (3.5-5.1); Alkaline Phosphatase 83 U/L (38-126); Anion Gap 8 mmol/L (8-16); Aspartate Amino Transferase 24 U/L (17-59); Bilirubin,Total 1.1 mg/dL (0.2-1.3); Blood Urea Nitrogen 19 mg/dL (9-20); Calcium 9.6 mg/dL (8.4-10.2); Carbon Dioxide 30 mmol/L (22-30); Chloride 96 mmol/L (98-107); Estimated CRCL calculation 116 ml/min; Estimated Glomerular Filt Rate > 60; Glucose 308 mg/dL (65-110); Potassium 4.6 mmol/L (3.4-5.0); Sodium 134 mmol/L (137-145)
[2022-09-23] MEDS: metroNIDAZOLE 500 MG/ISO 100ML 500 MG/100 ML BAG 100 MG IVPB ×2 (13:52→21:30)
[2022-09-23] MEDS: CEFEPIME 2 GM/NS 50 ML 2 GM/50 ML BAG IVPB (13:52)
--- NOTE | 2022-09-23 14:18 | PM.IMHP ---
H&P: HPI History of Present Illness Date/Time: 09/23/22 14:30 Chief Complaint: Worsening left foot infection. Narrative: This is a 67-year-old male with insulin-dependent type 2 diabetes mellitus, hypertension, and hyperlipidemia who presented to the emergency department via private vehicle from his doctor's office for evaluation of a worsening left foot infection. The patient provides the following history. One week ago he developed pain and redness on the bottom of the left foot and he was seen in the emergency department on the after the redness started to extend onto the top of the foot. He was found to have a small foreign body (possible splinter) on the plantar aspect of the 1st toe which was removed. There was a small amount of purulent drainage which was sent for culture which has heavy growth of Staphylococcus aureus.. He was discharged on levofloxacin and doxycycline and was also treated for tinea pedis with clotrimazole. He followed up with his doctor today and was sent to the ER due to worsening symptoms. He now has significant swelling, redness, and heat coming from the site with extension up the leg. He has pain with weight-bearing and palpation. He medications have not helped much. He continues to have some mild purulence drainage. He feels a bit unwell but does not have any specific systemic symptoms and he denies fever, chills, sweats, nausea, and vomiting. He was afebrile on arrival to the ED. WBC count was 10.4 and random glucose was 308. He reports that it is not unusual for his glucose to range anywhere from 300 to 500. Left foot x-ray showed no evidence of osteomyelitis or radiopaque foreign body. He is being admitted in this setting for further antibiotics. Review of Systems Review of Systems: Twelve systems were reviewed and are negative except for as per HPI. [facility] Past Medical History Medical History (Updated 09/23/22 @ 14:28 by Selena Cohn PA-C) Hyperlipidemia Hypertension Insulin dependent type 2 diabetes mellitus Kidney stones Surgical History Surgical History (Updated 09/23/22 @ 14:27 by Selena Cohn PA-C) History of lumbar surgery (2010) L4-L5 decompression. History of ventral hernia repair (01/2019) Repair of incarcerated ventral hernia. Family History Family History Mother Alzheimers disease Diabetes mellitus Father Diabetes mellitus Colon cancer Prostate carcinoma Coronary artery disease Sibling Diabetes mellitus Sibling Diabetes mellitus Sibling Diabetes mellitus Social History Social History (Updated 09/23/22 @ 14:27 by Selena Cohn PA-C) Social History: Surrogate medical decision maker: Winnie Hutchinson, spouse. Code status: Full code. Smoking packs per day: 2 Smoking cigarettes per day: 40.0 Years smoked: 2 Smoking pack-years: 4.00 Smoking status: Former smoker Second hand tobacco smoke exposure: Yes Alcohol intake: current Drinks per week: 1 Substance use: never Substance use type: does not use Lack of Transportation: No Lack of Food: Never True Current Housing: Decline to Answer Concerned About Future Housing: Decline to Answer Difficulty Paying Gas/Electric Bills: Decline to Answer Difficulty Paying for Meds: Decline to Answer Currently Unemployed: Decline to Answer Education: Decline to Answer Difficulty w/ Childcare or Family Care: Decline to Answer Additional living arrangements comments: Lives with spouse in [place]. Additional occupation/education comments: Retired. Spiritual care concerns: No Agree to blood products: Yes Meds Home Medications and Allergies Home Medications Medication Instructions Recorded Confirmed Type lisinopril 5 mg tablet See Rx Instructions .Route 08/26/21 09/23/22 Rx .COMPLEX #90 tabs glimepiride 4 mg tablet See Rx Instructions .Route 10/03/21 09/23/22 Rx .COMPLEX #90 tabs
--- NOTE | 2022-09-23 15:02 | ADMGEN ---
This patient, Trino Hutchinson, was admitted to [facility] S[facility] Room 329-01. Patient/family oriented to hospital policies and general routines including ID bracelet, bed and alarms, visiting hours, pain management, procedures, bathroom and other care routines, personal items, smoking policy, room service/diet, and visiting hours. Information on how to activate the Rapid Response Team has been discussed. Patient/Family are encouraged to report perceived risks to care and to ask questions if they do not understand what they are told or what they should do.
[2022-09-23] MEDS: VANCOMYCIN 1,250 MG/NS 250 ML 1,250 MG/250 ML BAG 166.67 MG IVPB ×2 (16:47→16:55)
[2022-09-23] MEDS: INSULIN ASPART (*BKC) 100 UNITS/ML SUB-Q ×2 (16:52→21:30)
[2022-09-23 16:55] LABS: Glucose Point of Care 246 mg/dl (65-105)
[2022-09-23 20:48] LABS: Glucose Point of Care 257 mg/dl (65-105)
[2022-09-23] MEDS: INSULIN GLARGINE (*BKC) 100 UNITS/ML 22 UNITS SUB-Q (21:30)
[2022-09-23 21:44] LABS: Hemoglobin A1C 10.6 % (<5.7)
[2022-09-23] MEDS: oxyCODONE/ACETAMINOPHEN (*CRX) 5-325 MG TABLET 1 TABLET PO (22:42)
[2022-09-24] MEDS: CEFEPIME 2 GM/NS 50 ML 2 GM/50 ML BAG IVPB ×2 (01:35→16:00)
[2022-09-24 05:24] VITALS: BP 117/68; PULSE 64; RESP 16; TEMP 36.1; O2SAT 98
[2022-09-24] MEDS: metroNIDAZOLE 500 MG/ISO 100ML 500 MG/100 ML BAG 100 MG IVPB ×3 (06:14→21:09)
[2022-09-24 06:26] LABS: Hematocrit 36.9 % (42.0-52.0); Hemoglobin 12.2 g/dL (14.0-18.0); Mean Corpuscular HGB Conc 33.1 g/dl (32-36); Mean Corpuscular Hemoglobin 30.8 pg (26-34); Mean Corpuscular Volume 93.2 fl (80-100); Mean Platelet Volume 9.6 fl (7.4-10.4); Platelet Count Result 215 k/mm3 (150-375); Red Blood Count 3.96 M/mm3 (4.6-6.20); Red Cell Distribution Width 12.4 % (11.5-14.5); White Blood Count 6.5 K/mm3 (4.5-10.0)
[2022-09-24 06:38] LABS: Anion Gap 2 mmol/L (8-16); Blood Urea Nitrogen 16 mg/dL (9-20); Calcium 8.4 mg/dL (8.4-10.2); Carbon Dioxide 28 mmol/L (22-30); Chloride 101 mmol/L (98-107); Estimated CRCL calculation 133 ml/min; Estimated Glomerular Filt Rate > 60; Glucose 219 mg/dL (65-110); Magnesium 1.8 mg/dL (1.6-2.3); Potassium 3.8 mmol/L (3.4-5.0); Sodium 131 mmol/L (137-145)
[2022-09-24 07:57] LABS: Glucose Point of Care 196 mg/dl (65-105)
[2022-09-24] MEDS: MICONAZOLE NITRATE 2% CREAM 30 GM TUBE 1 APPLIC TOPICAL (08:34)
[2022-09-24] MEDS: CHOLECALCIFEROL 1,000 UNITS TABLET 5000 UNITS PO (08:35)
[2022-09-24] MEDS: ENOXAPARIN 40 MG/0.4 ML SYRINGE SUB-Q (08:35)
[2022-09-24] MEDS: CYANOCOBALAMIN 500 MCG TABLET PO (08:36)
[2022-09-24] MEDS: CYANOCOBALAMIN 1,000 MCG TABLET 2000 MCG PO (08:36)
[2022-09-24] MEDS: ROSUVASTATIN 10 MG TABLET PO (08:37)
[2022-09-24] MEDS: lisinopriL 5 MG TABLET PO (08:37)
[2022-09-24] MEDS: PIOGLITAZONE HCL 15 MG TAB BY MOUTH (08:37)
[2022-09-24] MEDS: GLIMEPIRIDE 2 MG TABLET PO (08:38)
[2022-09-24] MEDS: metFORMIN HCL 500 MG TABLET 1000 MG BY MOUTH ×2 (10:24→17:04)
[2022-09-24] MEDS: HYDROcodone/acetaminophen (*CRX) 5-325 MG TABLET 1 TAB PO (10:24)
--- NOTE | 2022-09-24 11:23 | PM.IMPN ---
Progress Note: A&P Assessment and Plan (1) Diabetic infection of left foot: Code(s): E11.628 - Type 2 diabetes mellitus with other skin complications; L08.9 - Local infection of the skin and subcutaneous tissue, unspecified Status: Acute Assessment and Plan: Foreign body removed nearly a week ago, small remnant still visible on MRI. MRSA positive wound culture from the clinic. On Vanc, Flagyl, Cefepime. (2) Type 2 diabetes mellitus with hyperglycemia: Code(s): E11.65 - Type 2 diabetes mellitus with hyperglycemia Status: Acute Assessment and Plan: Patient reports blood sugar 300-500 at home frequently. On SSI. A1c 10.6 which is more controlled than prior results. (3) Hypertension: Code(s): I10 - Essential (primary) hypertension Status: Acute Assessment and Plan: Stable, BP reviewed on 09/24 (4) Hyperlipidemia: Qualifiers: Hyperlipidemia type: mixed hyperlipidemia Qualified Code(s): E78.2 - Mixed hyperlipidemia Code(s): E78.5 - Hyperlipidemia, unspecified Status: Acute (5) Foreign body in foot, left: Code(s): S90.852A - Superficial foreign body, left foot, initial encounter Status: Acute Assessment and Plan: Surgery consulted for retained foreign body with MRSA infection Time Spent With Patient Time with patient: 25 - 35 minutes Subjective Date/time seen: 09/24/22 11:23 Interval history: 09/24: Patient reports he is generally feeling okay except for pain in his left foot. He he was admitted due to MRSA positive wound culture with worsening swelling and drainage from the left foot. A foreign body was removed in the emergency department few days ago prior to admission. No fever chills. MRI was completed to look for osteomyelitis but a continued foreign body is noted. Surgery consulted. Review of Systems Review of Systems: Twelve systems were reviewed and are negative except for as per HPI. Exam Narrative: General: Well-developed, nontoxic-appearing male in the semi-Pereira position in bed in no distress. HEENT: PERRL, EOMI. Sclera anicteric. Oral mucosa moist. Neck: Supple. No JVD Respiratory: Lungs are clear to auscultation bilaterally. Cardiovascular: Regular rate and rhythm with S1-S2. Gastrointestinal: Abdomen is soft, nontender, and nondistended with positive bowel sounds. Skin: Warm and dry. There is an irregularly shaped wound on the plantar aspect about the 1st and 2nd metatarsal head. There is or small open area draining purulent fluid. Surrounding tissue is erythematous, edematous, and warm and this extends onto the toe, dorsum of the foot, and just above the ankle. There is a boggy area of yellowish discoloration at the base of the 1st, 2nd, and 3rd toe which may contain a small amount of pus as well. Extremities: No cyanosis or clubbing. Mild left joanne ankle edema. Radial and pedal pulses intact. Neurological: Alert. Cranial nerves 2-12 are grossly intact. No gross focal deficits to casual conversation. Psychiatric: Pleasant and cooperative with normal mood and affect. Objective Data Vital Signs Vital Signs: Vital Signs - 24 hr 09/23/22 12:31 09/23/22 12:35 09/23/22 12:36 Temperature 36.6 C Pulse Rate 90 90 88 Respiratory Rate 20 17 20 Blood Pressure 156/76 H 156/76 H Pulse Oximetry 97 99 99 Oxygen Delivery Room Air 09/23/22 12:37 09/23/22 12:45 09/23/22 12:46 Temperature Pulse Rate 88 88 90 Respiratory Rate 16 17 18 Blood Pressure 152/67 H Pulse Oximetry 96 99 Oxygen Delivery 09/23/22 13:00 09/23/22 13:15 09/23/22 13:18 Temperature Pulse Rate 87 86 85 Respiratory Rate 15 18 20 Blood Pressure 126/72 Pulse Oximetry 98 98 Oxygen Delivery 09/23/22 13:30 09/23/22 13:31 09/23/22 13:45 Temperature Pulse Rate 89 88 85 Respiratory Rate 14 21 H 21 H Blood Pressure 153/82 H Pulse Oximetry 96 95 94 Oxygen Delivery 09/23/22 13:46
[2022-09-24 11:52] LABS: Glucose Point of Care 212 mg/dl (65-105)
[2022-09-24] MEDS: INSULIN ASPART (*BKC) 100 UNITS/ML SUB-Q ×2 (12:08→21:19)
[2022-09-24] MEDS: oxyCODONE/ACETAMINOPHEN (*CRX) 5-325 MG TABLET 1 TABLET PO ×2 (12:13→21:07)
[2022-09-24 14:00] VITALS: BP 116/59; PULSE 65; RESP 16; TEMP 36.9; O2SAT 98
[2022-09-24] MEDS: BETAMETHASONE/CLOTRIMAZOLE CR 15 GM TUBE 1 APPLIC TOPICAL ×2 (16:08→21:10)
[2022-09-24] MEDS: INSULIN GLARGINE (*BKC) 100 UNITS/ML 22 UNITS SUB-Q (17:07)
[2022-09-24 17:09] LABS: Glucose Point of Care 158 mg/dl (65-105)
--- NOTE | 2022-09-24 18:05 | PM.CNGS ---
Assessment and Plan Assessment and plan (1) Diabetic infection of left foot: Code(s): E11.628 - Type 2 diabetes mellitus with other skin complications; L08.9 - Local infection of the skin and subcutaneous tissue, unspecified Status: Acute Assessment and Plan: Improving with IV antibiotics. No signs of necrosis or gangrene. May well have abscess associated with previous foreign body. (2) Foreign body in foot, left: Code(s): S90.852A - Superficial foreign body, left foot, initial encounter Status: Acute Assessment and Plan: Small residual foreign body noted on MRI but not noted in the report of the plain films. Will review the films with radiologist tomorrow and if can identify the foreign body, will proceed to removed in the OR under fluoroscopy. Discussed with the patient. (3) Insulin dependent type 2 diabetes mellitus: Code(s): E11.9 - Type 2 diabetes mellitus without complications; Z79.4 - termite technician (current) use of insulin Status: Chronic Assessment and Plan: Has diabetic neuropathy as well. (4) HTN (hypertension): Qualifiers: Hypertension type: essential hypertension Qualified Code(s): I10 - Essential (primary) hypertension Code(s): I10 - Essential (primary) hypertension Status: Chronic History of Present Illness Consult details Consult date: 09/24/22 Reason for consult: other (Diabetic foot infection with foreign body) Requesting physician: Raza Mohan, MARTHA Narrative: Patient is a 67-year-old man who presented to the emergency room 4 days ago, on 09/20/2022, with foot infection of his left 1st metatarsal and left 1st toe. Imaging showed a metallic foreign body in the area of the 1st phalanx. The emergency room physician removed a metal shaving that was small from the area. He was sent home on oral antibiotics but the infection worsened. He had redness up his lower leg with severe swelling of the foot. He did have wound cultures from 09/20/2022 which showed methicillin sensitive Staph aureus. He has been on broad-spectrum antibiotics since admitted yesterday. The redness of the lower leg and swelling of the foot have much improved. Plain films did not show osteomyelitis. An MRI done today did not show osteomyelitis but did show a small residual foreign body fragment. Patient is seen now in consultation regarding his diabetic foot infection as well as a small residual foreign body noted on MRI. He does not recall stepping on anything in particular. He does report that they remodeled his bathroom and shower. He suspects he may have stepped on a shard from a nail or other metallic object associated with this remodeling. He does have limited feeling in his feet due to diabetic neuropathy. Review of Systems Review of Systems: All systems reviewed & are unremarkable except as noted in HPI and below (HPI and those items noted below) Constitutional: Constitutional: Denies chills and Denies fever(s) Cardiovascular: Cardiovascular: Denies chest pain, Denies diaphoresis, Denies dyspnea and Denies paroxysmal nocturnal dyspnea Respiratory: Respiratory: Denies chest congestion, Denies cough and Denies dyspnea Integumentary/Breasts: Skin/Breast: Denies lesions and Denies rash PMFSH Past Medical History Medical History Hyperlipidemia Hypertension Insulin dependent type 2 diabetes mellitus Kidney stones Surgical History Surgical History History of lumbar surgery (2010) L4-L5 decompression. History of ventral hernia repair (01/2019) Repair of incarcerated ventral hernia. Family History Family History Mother Alzheimers disease Diabetes mellitus Father Diabetes mellitus Colon cancer Prostate carcinoma Coronary artery disease Sibling Diabetes mellitus Sibling
[2022-09-24 20:25] VITALS: BP 124/66; PULSE 75; RESP 16; TEMP 36.6; O2SAT 96
[2022-09-24 21:02] LABS: Glucose Point of Care 248 mg/dl (65-105)
[2022-09-25] VITALS (11 sets, daily range): BP systolic 104–139; BP diastolic 56–80; PULSE 63–77; RESP 14–18; TEMP 36.3–36.9; O2SAT 16–100
[2022-09-25] MEDS: CEFEPIME 2 GM/NS 50 ML 2 GM/50 ML BAG IVPB ×2 (01:20→15:08)
[2022-09-25 04:41] LABS: Estimated CRCL calculation 116 ml/min; Estimated Glomerular Filt Rate > 60
[2022-09-25 04:42] LABS: Vancomycin Trough 8.6 ug/mL (10.0-20.0)
[2022-09-25] MEDS: metroNIDAZOLE 500 MG/ISO 100ML 500 MG/100 ML BAG 100 MG IVPB ×3 (06:41→22:46)
--- NOTE | 2022-09-25 09:12 | ECG_ITS ---
Measurements Intervals [place] Rate: 69 P: 23 VA: 166 QRS: 17 QRSD: 98 T: 15 QT: 397 QTc: 427 Interpretive Statements SINUS RHYTHM NORMAL ELECTROCARDIOGRAM COMPARED TO ECG 01/24/2019 07:57:37 NO SIGNIFICANT CHANGES Electronically Signed On 09-25-2022 15:53:53 CDT by Mesfin De Luna M.D.
--- NOTE | 2022-09-25 09:54 | PM.IMPN ---
Progress Note: A&P Assessment and Plan (1) Diabetic infection of left foot: Code(s): E11.628 - Type 2 diabetes mellitus with other skin complications; L08.9 - Local infection of the skin and subcutaneous tissue, unspecified Status: Acute Assessment and Plan: Foreign body removed nearly a week ago, small remnant still visible on MRI. MRSA positive wound culture from the clinic. On Vanc, Flagyl, Cefepime. 09/25: Patient to go to the operating room for incision and drainage and debridement today. (2) Type 2 diabetes mellitus with hyperglycemia: Code(s): E11.65 - Type 2 diabetes mellitus with hyperglycemia Status: Acute Assessment and Plan: Patient reports blood sugar 300-500 at home frequently. On SSI. A1c 10.6 which is more controlled than prior results. (3) Hypertension: Code(s): I10 - Essential (primary) hypertension Status: Acute Assessment and Plan: Stable, BP reviewed on 09/25 (4) Foreign body in foot, left: Code(s): S90.852A - Superficial foreign body, left foot, initial encounter Status: Acute Assessment and Plan: Surgery consulted for retained foreign body with MRSA infection 09/25: Patient to OR today Time Spent With Patient Time with patient: 25 - 35 minutes Subjective Date/time seen: 09/25/22 09:54 Interval history: 09/24: Patient reports he is generally feeling okay except for pain in his left foot. He he was admitted due to MRSA positive wound culture with worsening swelling and drainage from the left foot. A foreign body was removed in the emergency department few days ago prior to admission. No fever chills. MRI was completed to look for osteomyelitis but a continued foreign body is noted. Surgery consulted. 09/25: Patient seen this morning states that he is feeling okay. He denies fever or chills. Only mild drainage the foot but there is worsening swelling. Surgery saw patient yesterday evening and plans to go to the operating room today. Review of Systems Review of Systems: All systems reviewed & are unremarkable except as noted in HPI and below (HPI and those items noted below) Constitutional: Constitutional: Denies chills and Denies fever(s) Cardiovascular: Cardiovascular: Denies chest pain, Denies diaphoresis, Denies dyspnea and Denies paroxysmal nocturnal dyspnea Respiratory: Respiratory: Denies chest congestion, Denies cough and Denies dyspnea Integumentary/Breasts: Skin/Breast: Denies lesions and Denies rash Exam Narrative: General: Well-developed, nontoxic-appearing male in the semi-Pereira position in bed in no distress. HEENT: PERRL, EOMI. Sclera anicteric. Oral mucosa moist. Neck: Supple. No JVD Respiratory: Lungs are clear to auscultation bilaterally. Cardiovascular: Regular rate and rhythm with S1-S2. Gastrointestinal: Abdomen is soft, nontender, and nondistended with positive bowel sounds. Skin: Warm and dry. There is an irregularly shaped wound on the plantar aspect about the 1st and 2nd metatarsal head. There is or small open area draining minimal amount purulent fluid. Surrounding tissue is erythematous, and more swollen today. Extremities: No cyanosis or clubbing. Mild left joanne ankle edema. Radial and pedal pulses intact. Neurological: Alert. Cranial nerves 2-12 are grossly intact. No gross focal deficits to casual conversation. Psychiatric: Pleasant and cooperative with normal mood and affect. Objective Data Vital Signs Vital Signs: Vital Signs - 24 hr 09/24/22 14:00 09/24/22 20:25 09/24/22 20:00 Temperature 36.9 C 36.6 C Pulse Rate 65 75 Respiratory Rate 16 16 Blood Pressure 116/59 L 124/66 Pulse Oximetry 98 96 Oxygen Delivery Room Air 09/25/22 04:40 09/25/22 08:00 Temperature 36.6 C Pulse Rate 76 Respiratory Rate 16 Blood Pressure 130/56 L Pulse Oximetry 97 Oxygen Delivery Room Air Intake/Output Intake/Output: Intake & Output 09/22/22 09/23/2209/24
[2022-09-25 11:49] LABS: Glucose Point of Care 247 mg/dl (65-105)
--- NOTE | 2022-09-25 11:52 | PC.NURSE ---
Patient to pre-op via stretcher.
--- NOTE | 2022-09-25 12:20 | WPDANESEPPF ---
Anes - Initial Pre Proc Eval Procedure: Operation Date: 09/25/22 12:00 Proposed Procedures p Incision and Drainage Left Foot - Rachid Wood MD Date/Time: 09/25/22 12:20 Surgeon: Denisse Arora MD Pre Op Diagnosis: cellulitis Patient Data Age: 67 Gender: M Height: 1.98 m Weight: 110.5 kg Last Vital Signs Temp 36.6 C 09/25/22 04:40 Pulse 76 09/25/22 04:40 Resp 16 09/25/22 04:40 BP 130/56 L 09/25/22 04:40 Pulse Ox 97 09/25/22 04:40 O2 Del Method Room Air 09/25/22 08:00 Allergies Allergy/AdvReac Type Severity Reaction Status Date / Time No Known Allergies Allergy Verified 09/23/22 10:56 Home Medications Medication Instructions Recorded Confirmed Type lisinopril 5 mg tablet See Rx Instructions .Route 08/26/21 09/23/22 Rx .COMPLEX #90 tabs glimepiride 4 mg tablet See Rx Instructions .Route 10/03/21 09/23/22 Rx .COMPLEX #90 tabs pen needle, diabetic 32 gauge x #100 ea 12/11/21 09/23/22 Rx 1/4 (BD Ultra-Fine Micro Pen Needle) pen needle, diabetic 32 gauge x ##100 12/11/21 09/23/22 Rx 5/32 (BD Nissa 2nd Gen Pen Needle) antiarthritic combination no.2 900 5 mg PO DAILY 05/18/22 09/23/22 History mg tablet (glucosamine-chondroitin) cholecalciferol (vitamin D3) 125 125 mcg PO DAILY 05/18/22 09/23/22 History mcg (5,000 unit) capsule magnesium citrate 100 mg capsule 100 mg PO DAILY 05/18/22 09/23/22 History mecobalamin (vitamin B12) 2,500 2,500 mcg PO DAILY 05/18/22 09/23/22 History mcg chewable tablet pioglitazone 15 mg tablet See Rx Instructions .Route 05/18/22 09/23/22 Rx .COMPLEX #90 tabs vitamin K2 100 mcg capsule 100 mcg PO DAILY 05/18/22 09/23/22 History zinc acetate 50 mg (zinc) capsule 50 mg PO DAILY 05/18/22 09/23/22 History (Galzin) dapagliflozin propanediol 5 mg See Rx Instructions .Route 06/15/22 09/23/22 Rx tablet (Farxiga) .COMPLEX #90 tabs metformin 1,000 mg tablet See Rx Instructions .Route 06/15/22 09/23/22 Rx .COMPLEX #180 tabs rosuvastatin 10 mg tablet 10 mg PO DAILY #90 tabs 06/18/22 09/23/22 Rx semaglutide 0.25 mg or 0.5 mg (2 0.25 mg (0.368 mL) subcut WEEKLY 06/18/22 09/23/22 Rx mg/3 mL) subcutaneous pen injector #3 mL (Ozempic) insulin glargine 100 unit/mL (3 22 unit (0.22 mL) subcut QPM #15 mL 08/03/22 09/23/22 Rx mL) subcutaneous pen (Basaglar KwikPen U-100 Insulin) oxycodone-acetaminophen 5 mg-325 1 tablet PO Q6H PRN pain #7 tabs 09/16/22 09/23/22 Rx mg tablet (Percocet) clotrimazole 1 % topical cream 1 applic topical BID 4 weeks #30 09/20/22 09/23/22 Rx grams doxycycline monohydrate 100 mg 100 mg PO BID 7 days #14 tabs 09/20/22 09/23/22 Rx tablet levofloxacin 750 mg tablet 750 mg PO DAILY 7 days #7 tabs 09/20/22 09/23/22 Rx Laboratory Tests 09/24/22 09/24/22 09/25/22 17:01 20:25 03:00 Creatinine 0.70 mg/dL (0.7-1.3) Estim Creat Clear Calc 116 ml/min Estimated GFR > 60 (59 - ) POC Capillary Glucose 158 H mg/dl 248 H mg/dl (65-105) (65-105) Vancomycin Trough 8.6 L ug/mL (10.0-20.0) 09/25/22 11:42 Creatinine Estim Creat Clear Calc Estimated GFR POC Capillary Glucose 247 H mg/dl (65-105) Vancomycin Trough Patient hx anesthesia problems: none Family hx anesthesia problems: none Results Review: All pre-operative results and documents have been reviewed as part of the pre-operative evaluation. [facility] Past Medical History Medical History Hyperlipidemia Hypertension Insulin dependent type 2 diabetes mellitus Kidney stones Surgical History Surgical History History of lumbar surgery (2010) L4-L5 decompression. History of ventral hernia repair (01/2019) Repair of incarcerated ventral hernia. Family History Family History (Reviewed 09/25/22 @ 12:21 by Michael Ruiz
--- NOTE | 2022-09-25 12:32 | WPDHPUPDATE1 ---
History and Physical Update Update Date/Time: 09/25/22 12:32 History and Physical has been reviewed, including an updated exam of the patient. There are NO changes in the patient's condition. Risks, benefits, and alternatives have been discussed and questions answered. Patient agrees to proceed with procedure.
--- NOTE | 2022-09-25 12:44 | PM.PNGS ---
Progress Note: A&P Assessment and Plan (1) Foreign body in foot, left: Code(s): S90.852A - Superficial foreign body, left foot, initial encounter Status: Chronic Assessment and Plan: Foreign body seen on MRI is not playing a role in the present diabetic foot infection and in fact is located in the distal proximal phalanx near the interphalangeal joint where there is no sign of infection tenderness or other problems. It is also extremely superficial and barely under the skin. It is not noted on exam. It is not even a mm in size. It has no role in the current diabetic foot infection and no efforts will be made to remove it. (2) Diabetic infection of left foot: Code(s): E11.628 - Type 2 diabetes mellitus with other skin complications; L08.9 - Local infection of the skin and subcutaneous tissue, unspecified Status: Acute Assessment and Plan: Dripping bloody purulent fluid from area where patient had metallic shard removed. Even though he has improved significantly with antibiotics, feel there is infected, possibly necrotic, tissue and abscess in the vicinity of the 1st metatarsal head and proximal 1st phalanx. Will proceed to surgery for incision and drainage. Discussed with patient who understands and agrees to go ahead. Explained that we will not be removing the foreign body that I discussed with him yesterday. Subjective Subjective Date/Time Seen: 09/25/22 12:44 Patient reports: no new complaints and afebrile Review of Systems Review of Systems: All systems reviewed & are unremarkable except as noted in HPI and below (HPI) Exam Const: General: comfortable and no acute distress Orientation/consciousness: patient oriented x3 Neuro: General: patient oriented x3 and no focal motor deficits Extrem: General: no calf tenderness Left lower extremity: foot (Tripping bloody, purulent fluid from plantar wound) Details: other (Tender 1st metatarsal plantar surface) Psych: Affect: normal affect Insight: Good insight present (Psych) Judgement: Good judgement present (Psych) Objective Data Vital Signs Vital Signs: Vital Signs - 24 hr 09/24/22 14:00 09/24/22 20:25 09/24/22 20:00 Temperature 36.9 C 36.6 C Pulse Rate 65 75 Respiratory Rate 16 16 Blood Pressure 116/59 L 124/66 Pulse Oximetry 98 96 Oxygen Delivery Room Air 09/25/22 04:40 09/25/22 08:00 09/25/22 12:04 Temperature 36.6 C 36.9 C Pulse Rate 76 70 Respiratory Rate 16 16 Blood Pressure 130/56 L 121/67 Pulse Oximetry 97 16 L Oxygen Delivery Room Air Room Air Intake/Output Intake/Output: Intake & Output 09/22/22 09/23/22 09/24/22 09/25/22 23:59 23:59 23:59 23:59 Intake Total 440 2580 100 Output Total 3475 Balance 440 -895 100 Meds/Results Medications: Active Medications Generic Name Dose Route Start Last Admin Trade Name Freq PRN Reason Stop Dose Admin Acetaminophen 650 mg 09/23/22 14:31 Acetaminophen 325 Mg Tablet PO Q6H PRN Mild Pain (1-3) or Fever Hydrocodone Bitart/Acetaminophen 1 tab 09/23/22 14:31 09/24/22 10:24 Hydrocodone/Acetaminophen (*Crx) 5-325 Mg Tablet PO 1 tab Q6H PRN Administration Pain Rated 4-6 Clotrimazole 1 applic 09/24/22 09:00 09/25/22 08:09 Betamethasone/Clotrimazole Cr 15 Gm Tube TOPICAL Not Given Q12HR ALEX Cyanocobalamin 2,000 mcg 09/24/22 09:00 09/25/22 08:09 Cyanocobalamin 1,000 Mcg Tablet PO Not Given DAILY ALEX Cyanocobalamin 500 mcg 09/24/22 09:00 09/25/22 08:09 Cyanocobalamin 500 Mcg Tablet PO Not Given DAILY [facility] Dextrose 12.5 gm 09/23/22 14:30 Dextrose 50% 25 Gm/50 Ml Syringe IV PUSH PRN PRN Hypoglycemia Protocol Enoxaparin Sodium 40 mg 09/24/22 09:00 09/25/22 08:09 Enoxaparin 40 Mg/0.4 Ml Syringe SUB-Q Not Given DAILY ALEX Fentanyl Citrate 25 mcg 09/25/22 12:21 Fentanyl Citrate Inj (*Crx) 100 Mcg/2 Ml Vial IV PUSH Q2M PRN Pain Glimep
[2022-09-25] MEDS: LACTATED RINGERS 1,000 ML 30 ML IV CONT (14:05)
--- NOTE | 2022-09-25 14:07 | SUR.OPER ---
culture given to ANANDA Lorenzo. Received in lab by Kadie at [phone]
--- NOTE | 2022-09-25 14:19 | W.PM.PROC2 ---
Procedure Note - Detailed Date of Procedure 09/25/22 Pre-op Diagnosis Left diabetic foot infection with plantar 1st metatarsal abscess Post-op Diagnosis Same Procedure Performed Excisional debridement left 1st metatarsal plantar abscess including skin, subcutaneous, muscle 4 x 3 x 2 cm or 24 cm3 Surgeon Rachid Wood MD Supervisor [employer] Maura RYAN Anesthesia General (GIVS) Indications Patient has a diabetic foot infection with evidence of a 1st metatarsal plantar abscess. No osteomyelitis was noted on plain films. No foreign body is involved in the infection. Findings Purulent fluid with necrotic skin, subcutaneous, and muscle in area described above Description of Procedure Patient was taken to surgery and G IV S anesthesia was introduced. The left foot was prepped and draped. There was purulent fluid draining from the lateral aspect of the 1st metatarsal on plantar aspect of the foot. Using a curved clamp I opened this and more purulent fluid came forth. Cultures were obtained for aerobes anaerobes and Gram stain was obtained. I then probed the underlying space. The clamp went all the way to a darkened area on the more medial plantar aspect of the 1st metatarsal head. I opened over this darkened area and additional purulent fluid came forth. I then connected this portion of the abscess with the more lateral opening that was described previously. I opened the skin overlying this area. More purulent fluid and some necrotic tissue was found. I removed the overlying skin and the necrotic tissue. I debrided back to healthy-appearing subcutaneous and bony covering. I then probed to wards the web space between the 1st and 2nd toe. The abscess clearly went in this direction as well. I opened the overlying skin and found additional necrotic tissue with purulent fluid. I excised and debrided skin subcutaneous and some muscle in this area. I continued the debridement in this area down to healthy tissue. I reviewed the wound edges and debrided some additional subcutaneous and muscle. Cautery was used for hemostasis. The underlying wound looked good with no evidence of additional purulent fluid or necrotic tissue. I measured the size of the excision which was 3 x 4 x 2 cm. The wound was then packed with 1 in iodoform Nu Gauze. Bulky fluff dressing was placed over the wound and between the 1st and 2nd toes. ABD was placed over the 1st metatarsal wound and then Kerlix roll was used to secure the dressings and wrap up to the ankle. Patient was then awakened and taken to recovery in good condition. Sponge and needle counts were correct x2. Estimated Blood Loss -10 Urine Output 1,700 Drains No Packing Yes (1 in iodoform Nu Gauze) Pathology Other (Cultures aerobes anaerobes and a Gram stain) Complications No immediate complications Condition Stable Disposition PACU [facility] Billing Surgery - Charge Forward: Surgery Billing (Excisional debridement left foot, 1st metatarsal plantar abscess 4 x 3 x 2 cm or 24cm3)
[2022-09-25 17:03] LABS: Glucose Point of Care 261 mg/dl (65-105)
[2022-09-25] MEDS: INSULIN ASPART (*BKC) 100 UNITS/ML SUB-Q (17:11)
[2022-09-25] MEDS: metFORMIN HCL 500 MG TABLET 1000 MG BY MOUTH (17:11)
[2022-09-25] MEDS: INSULIN GLARGINE (*BKC) 100 UNITS/ML 22 UNITS SUB-Q (17:11)
[2022-09-25] MEDS: oxyCODONE/ACETAMINOPHEN (*CRX) 5-325 MG TABLET 1 TABLET PO (20:06)
[2022-09-25 20:30] LABS: Glucose Point of Care 226 mg/dl (65-105)
[2022-09-26] MEDS: CEFEPIME 2 GM/NS 50 ML 2 GM/50 ML BAG IVPB ×2 (01:06→13:01)
[2022-09-26 01:20] LABS: Basophils Absolute Auto 0.1 K/mm3 (0.0-0.1); Basophils Percent Auto 0.8 % (0.2-1.2); Eosinophils Absolute Auto 0.3 K/mm3 (0-0.3); Hematocrit 38.3 % (42.0-52.0); Hemoglobin 12.8 g/dL (14.0-18.0); Immature Granulocyte Absolute 0.12 K/mm3 (0.00-0.031); Immature Granulocyte Percent A 1.9 % (0-0.5); Lymphocytes Absolute Auto 1.43 K/mm3 (0.9-3.2); Lymphocytes Percent Auto 22.9 % (18.3-44.2); Mean Corpuscular HGB Conc 33.4 g/dl (32-36); Mean Corpuscular Hemoglobin 30.5 pg (26-34); Mean Corpuscular Volume 91.4 fl (80-100); Mean Platelet Volume 9.2 fl (7.4-10.4); Monocytes Percent Auto 15.5 % (2.6-8.5); Neutrophils Absolute Auto 3.4 K/mm3 (1.3-6.7); Neutrophils Percent Auto 54.9 % (45.5-73.1); Platelet Count Result 268 k/mm3 (150-375); Red Blood Count 4.19 M/mm3 (4.6-6.20); Red Cell Distribution Width 12.2 % (11.5-14.5); White Blood Count 6.2 K/mm3 (4.5-10.0)
[2022-09-26 01:33] LABS: Alanine Aminotransferase 16 U/L (6-50); Albumin Level 3.2 g/dL (3.5-5.1); Alkaline Phosphatase 55 U/L (38-126); Anion Gap 4 mmol/L (8-16); Aspartate Amino Transferase 17 U/L (17-59); Bilirubin,Total 0.4 mg/dL (0.2-1.3); Blood Urea Nitrogen 16 mg/dL (9-20); Calcium 8.4 mg/dL (8.4-10.2); Carbon Dioxide 27 mmol/L (22-30); Chloride 100 mmol/L (98-107); Estimated CRCL calculation 116 ml/min; Estimated Glomerular Filt Rate > 60; Glucose 224 mg/dL (65-110); Potassium 3.9 mmol/L (3.4-5.0); Sodium 131 mmol/L (137-145)
[2022-09-26 01:38] LABS: Vancomycin Trough 14.8 ug/mL (10.0-20.0)
[2022-09-26 06:10] VITALS: BP 127/70; PULSE 74; RESP 12; TEMP 36.3; O2SAT 98
[2022-09-26] MEDS: metroNIDAZOLE 500 MG/ISO 100ML 500 MG/100 ML BAG 100 MG IVPB ×3 (06:14→21:45)
[2022-09-26] MEDS: CYANOCOBALAMIN 1,000 MCG TABLET 2000 MCG PO (08:20)
[2022-09-26] MEDS: CHOLECALCIFEROL 1,000 UNITS TABLET 5000 UNITS PO (08:20)
[2022-09-26] MEDS: CYANOCOBALAMIN 500 MCG TABLET PO (08:20)
[2022-09-26] MEDS: metFORMIN HCL 500 MG TABLET 1000 MG BY MOUTH ×2 (08:20→17:34)
[2022-09-26] MEDS: ROSUVASTATIN 10 MG TABLET PO (08:20)
[2022-09-26] MEDS: GLIMEPIRIDE 2 MG TABLET PO (08:20)
[2022-09-26 08:21] LABS: Glucose Point of Care 219 mg/dl (65-105)
[2022-09-26] MEDS: ENOXAPARIN 40 MG/0.4 ML SYRINGE SUB-Q (08:21)
[2022-09-26] MEDS: PIOGLITAZONE HCL 15 MG TAB BY MOUTH (08:21)
[2022-09-26] MEDS: lisinopriL 5 MG TABLET PO (08:21)
[2022-09-26] MEDS: INSULIN ASPART (*BKC) 100 UNITS/ML SUB-Q ×3 (08:26→21:34)
[2022-09-26] MEDS: oxyCODONE/ACETAMINOPHEN (*CRX) 5-325 MG TABLET 1 TABLET PO (08:26)
[2022-09-26 08:48] LABS: Glucose Point of Care 206 mg/dl (65-105)
[2022-09-26 09:46] VITALS: BP 139/74; PULSE 75; RESP 22; TEMP 36.5; O2SAT 95
--- NOTE | 2022-09-26 09:47 | PM.PNGS ---
Progress Note: A&P Assessment and Plan (1) Diabetic infection of left foot: Code(s): E11.628 - Type 2 diabetes mellitus with other skin complications; L08.9 - Local infection of the skin and subcutaneous tissue, unspecified Status: Acute Assessment and Plan: Doing well after debridement yesterday. Cultures are pending. Continue IV antibiotics. Will get a walking shoe and crutches. Patient can be up but not to bear any weight on ball of left foot. Subjective Subjective Date/Time Seen: 09/26/22 09:47 Post Op day: 1 Patient reports: no new complaints, tolerating a regular diet and afebrile Exam Const: General: comfortable and no acute distress Orientation/consciousness: patient oriented x3 Neuro: General: patient oriented x3 and no focal motor deficits Extrem: Left lower extremity: foot (Wound is clean, no necrotic tissue, no purulent fluid) Psych: Affect: normal affect Insight: Good insight present (Psych) Judgement: Good judgement present (Psych) Objective Data Vital Signs Vital Signs: Vital Signs - 24 hr 09/25/22 12:04 09/25/22 14:05 09/25/22 14:20 Temperature 36.9 C 36.7 C Pulse Rate 70 70 65 Respiratory Rate 16 14 16 Blood Pressure 121/67 119/70 104/65 Pulse Oximetry 16 L 100 100 Oxygen Delivery Room Air Simple Face Mask Simple Face Mask Oxygen Flow Rate 6 6 09/25/22 14:35 09/25/22 14:50 09/25/22 15:05 Temperature 36.3 C L Pulse Rate 63 67 65 Respiratory Rate 18 18 18 Blood Pressure 110/66 110/61 126/72 Pulse Oximetry 98 98 97 Oxygen Delivery Room Air Room Air Oxygen Flow Rate 09/25/22 15:20 09/25/22 15:50 09/25/22 16:50 Temperature 36.3 C L 36.3 C L 36.9 C Pulse Rate 65 70 77 Respiratory Rate 16 18 18 Blood Pressure 127/70 120/80 139/61 Pulse Oximetry 99 97 96 Oxygen Delivery Oxygen Flow Rate 09/25/22 20:00 09/25/22 20:00 09/26/22 06:10 Temperature 36.7 C 36.3 C L Pulse Rate 71 74 Respiratory Rate 16 12 Blood Pressure 133/57 L 127/70 Pulse Oximetry 98 98 Oxygen Delivery Room Air Oxygen Flow Rate Intake/Output Intake/Output: Intake & Output 09/23/22 09/24/22 09/25/22 09/26/22 23:59 23:59 23:59 23:59 Intake Total 440 2580 1500 1300 Output Total 3475 1700 3500 Balance 142 -270 -366 -9829 Meds/Results Medications: Active Medications Generic Name Dose Route Start Last Admin Trade Name Freq PRN Reason Stop Dose Admin Acetaminophen 650 mg 09/23/22 14:31 Acetaminophen 325 Mg Tablet PO Q6H PRN Mild Pain (1-3) or Fever Hydrocodone Bitart/Acetaminophen 1 tab 09/23/22 14:31 09/24/22 10:24 Hydrocodone/Acetaminophen (*Crx) 5-325 Mg Tablet PO 1 tab Q6H PRN Administration Pain Rated 4-6 Cyanocobalamin 2,000 mcg 09/24/22 09:00 09/26/22 08:20 Cyanocobalamin 1,000 Mcg Tablet PO 2,000 mcg DAILY ALEX Administration Cyanocobalamin 500 mcg 09/24/22 09:00 09/26/22 08:20 Cyanocobalamin 500 Mcg Tablet PO 500 mcg DAILY ALEX Administration Dextrose 12.5 gm 09/23/22 14:30 Dextrose 50% 25 Gm/50 Ml Syringe IV PUSH PRN PRN Hypoglycemia Protocol Enoxaparin Sodium 40 mg 09/24/22 09:00 09/26/22 08:21 Enoxaparin 40 Mg/0.4 Ml Syringe SUB-Q 40 mg DAILY ALEX Administration Glimepiride 2 mg 09/24/22 08:00 09/26/22 08:20 Glimepiride 2 Mg Tablet PO 2 mg DAILY@0800 ALEX Administration Glucagon 1 mg 09/23/22 14:30 Glucagon For Inj 1 Mg Vial IM PRN PRN Hypoglycemia Protocol Glucose 15 gm 09/23/22 14:30 Glucose Oral Gel 15 Gm Of Glucse In 37.5 Gm Tube PO PRN PRN Hypoglycemia Protocol Cefepime HCl 2 gm in 50 mls @ 100 mls/hr 09/24/22 02:00 09/26/22 01:06 Maxipime 2 Gm/Ns 50 Ml IVPB 100 mls/hr Q12H ALEX Administration Metronidazole 500 mg in 100 mls @ 100 mls/hr 09/23/22 22:00 09/26/22 06:14 Flagyl 500 Mg/Iso Soln 100 Ml IVPB 100 mls/hr Q8HR ALEX Administration Dextrose 1,000 mls @ 100 mls/hr
[2022-09-26 11:20] LABS: Glucose Point of Care 231 mg/dl (65-105)
--- NOTE | 2022-09-26 12:58 | PM.IMPN ---
Progress Note: A&P Assessment and Plan (1) Diabetic infection of left foot: Code(s): E11.628 - Type 2 diabetes mellitus with other skin complications; L08.9 - Local infection of the skin and subcutaneous tissue, unspecified Status: Acute Assessment and Plan: Foreign body removed nearly a week ago, small remnant still visible on MRI. MRSA positive wound culture from the clinic. On Vanc, Flagyl, Cefepime. 09/25: Patient to go to the operating room for incision and drainage and debridement today. 09/26: Doing well after debridement. Crutches and walking boot ordered for ambulation, no weight bearing to ball of foot. Dressing changes per Surgery at this time. Consider oral antibiotic conversion tomorrow 09/27 or 09/28 with discharge home after cleared by Surgery. (2) Type 2 diabetes mellitus with hyperglycemia: Code(s): E11.65 - Type 2 diabetes mellitus with hyperglycemia Status: Acute Assessment and Plan: Patient reports blood sugar 300-500 at home frequently. On SSI. A1c 10.6 which is more controlled than prior results. 09/26: Patient reports he is serious about better glucose control (3) Hypertension: Code(s): I10 - Essential (primary) hypertension Status: Acute Assessment and Plan: Stable, BP reviewed on 09/26 Time Spent With Patient Time with patient: 25 - 35 minutes Subjective Date/time seen: 09/26/22 12:58 Interval history: 09/24: Patient reports he is generally feeling okay except for pain in his left foot. He he was admitted due to MRSA positive wound culture with worsening swelling and drainage from the left foot. A foreign body was removed in the emergency department few days ago prior to admission. No fever chills. MRI was completed to look for osteomyelitis but a continued foreign body is noted. Surgery consulted. 09/25: Patient seen this morning states that he is feeling okay. He denies fever or chills. Only mild drainage the foot but there is worsening swelling. Surgery saw patient yesterday evening and plans to go to the operating room today. 09/26: Patient seen this afternoon states that he is feeling better today. Patient reports that the surgeon changed dressing and and showed him a picture the debridement and that threw him off for a little while because he did not realize how bad it was going to look. Patient reports that he is now serious about better controlling his diabetes. Review of Systems Review of Systems: All systems reviewed & are unremarkable except as noted in HPI and below (HPI) Exam Narrative: General: Well-developed, nontoxic-appearing male in the semi-Pereira position in bed in no distress. HEENT: PERRL, EOMI. Sclera anicteric. Oral mucosa moist. Neck: Supple. No JVD Respiratory: Lungs are clear to auscultation bilaterally. Cardiovascular: Regular rate and rhythm with S1-S2. Gastrointestinal: Abdomen is soft, nontender, and nondistended with positive bowel sounds. Skin: Warm and dry. Dressing intact, mild blood on new dressing. Photo of wound shows open tissue between first and second toe extending to the ball of the foot overlying first metatarsal region. Wound bed appears clean. Extremities: No cyanosis or clubbing. Mild left joanne ankle edema. Radial and pedal pulses intact. Neurological: Alert. Cranial nerves 2-12 are grossly intact. No gross focal deficits to casual conversation. Psychiatric: Pleasant and cooperative with normal mood and affect. Objective Data Vital Signs Vital Signs: Vital Signs - 24 hr 09/25/22 14:05 09/25/22 14:20 09/25/22 14:35 Temperature 36.7 C Pulse Rate 70 65 63 Respiratory Rate 14 16 18 Blood Pressure 119/70 104/65 110/66 Pulse Oximetry 100 100 98 Oxygen Delivery Simple Face Mask Simple Face Mask Room Air Oxygen Flow Rate 6 6 09/25/22 14:50 09/25/22 15:05 09/25/22 15:20 Temperature 36.3 C L 36.3 C L Pulse Rate 67 65 65 Respiratory Rate 18 18 16 Blood Pressure 110/61 126/
[2022-09-26 14:00] VITALS: BP 121/61; PULSE 73; RESP 16; TEMP 37.1; O2SAT 96
--- NOTE | 2022-09-26 15:07 | PC.NURSE ---
Order placed for walking boot on L side size 13 for hangar. Office will reopen Wednesday.
[2022-09-26 16:53] LABS: Glucose Point of Care 131 mg/dl (65-105)
[2022-09-26 17:07] LABS: Glucose Point of Care 128 mg/dl (65-105)
[2022-09-26] MEDS: HYDROcodone/acetaminophen (*CRX) 5-325 MG TABLET 1 TAB PO (17:39)
[2022-09-26] MEDS: ACETAMINOPHEN 325 MG TABLET 650 MG PO (21:32)
[2022-09-26 21:40] VITALS: BP 125/67; PULSE 74; RESP 16; TEMP 36.4; O2SAT 97
[2022-09-27] MEDS: CEFEPIME 2 GM/NS 50 ML 2 GM/50 ML BAG IVPB ×2 (01:47→14:40)
[2022-09-27 06:00] VITALS: BP 141/79; PULSE 67; RESP 14; TEMP 35.9; O2SAT 97
[2022-09-27] MEDS: oxyCODONE/ACETAMINOPHEN (*CRX) 5-325 MG TABLET 1 TABLET PO (06:07)
[2022-09-27] MEDS: metroNIDAZOLE 500 MG/ISO 100ML 500 MG/100 ML BAG 100 MG IVPB ×3 (06:08→22:18)
[2022-09-27 06:32] LABS: Glucose Point of Care 219 mg/dl (65-105)
[2022-09-27 07:00] LABS: Basophils Percent Auto 0.7 % (0.2-1.2); Eosinophils Absolute Auto 0.3 K/mm3 (0-0.3); Hematocrit 40.2 % (42.0-52.0); Hemoglobin 13.1 g/dL (14.0-18.0); Immature Granulocyte Absolute 0.07 K/mm3 (0.00-0.031); Immature Granulocyte Percent A 1.7 % (0-0.5); Lymphocytes Absolute Auto 1.19 K/mm3 (0.9-3.2); Lymphocytes Percent Auto 28.4 % (18.3-44.2); Mean Corpuscular HGB Conc 32.6 g/dl (32-36); Monocytes Absolute Auto 0.6 K/mm3 (0.1-0.6); Monocytes Percent Auto 14.8 % (2.6-8.5); Neutrophils Percent Auto 48.4 % (45.5-73.1); Platelet Count Result 273 k/mm3 (150-375); Red Blood Count 4.37 M/mm3 (4.6-6.20); Red Cell Distribution Width 12.4 % (11.5-14.5); White Blood Count 4.2 K/mm3 (4.5-10.0)
[2022-09-27 07:16] LABS: Alanine Aminotransferase 21 U/L (6-50); Albumin Level 3.4 g/dL (3.5-5.1); Alkaline Phosphatase 64 U/L (38-126); Anion Gap 4 mmol/L (8-16); Aspartate Amino Transferase 25 U/L (17-59); Bilirubin,Total 0.4 mg/dL (0.2-1.3); Blood Urea Nitrogen 13 mg/dL (9-20); Calcium 8.7 mg/dL (8.4-10.2); Carbon Dioxide 32 mmol/L (22-30); Chloride 100 mmol/L (98-107); Estimated CRCL calculation 133 ml/min; Estimated Glomerular Filt Rate > 60; Glucose 265 mg/dL (65-110); Potassium 4.1 mmol/L (3.4-5.0); Sodium 136 mmol/L (137-145)
[2022-09-27 07:29] LABS: Glucose Point of Care 239 mg/dl (65-105)
[2022-09-27] MEDS: SODIUM CHLORIDE 0.9% IV 1,000 ML 30 ML (07:40)
[2022-09-27] MEDS: INSULIN ASPART (*BKC) 100 UNITS/ML SUB-Q ×3 (09:02→16:54)
[2022-09-27] MEDS: CHOLECALCIFEROL 1,000 UNITS TABLET 5000 UNITS PO (09:03)
[2022-09-27] MEDS: ENOXAPARIN 40 MG/0.4 ML SYRINGE SUB-Q (09:03)
[2022-09-27] MEDS: GLIMEPIRIDE 2 MG TABLET PO (09:04)
[2022-09-27] MEDS: ROSUVASTATIN 10 MG TABLET PO (09:04)
[2022-09-27] MEDS: CYANOCOBALAMIN 1,000 MCG TABLET 2000 MCG PO (09:04)
[2022-09-27] MEDS: metFORMIN HCL 500 MG TABLET 1000 MG BY MOUTH ×2 (09:04→16:54)
[2022-09-27] MEDS: PIOGLITAZONE HCL 15 MG TAB BY MOUTH (09:04)
[2022-09-27] MEDS: lisinopriL 5 MG TABLET PO (09:04)
[2022-09-27] MEDS: CYANOCOBALAMIN 500 MCG TABLET PO (09:04)
[2022-09-27 11:16] LABS: Glucose Point of Care 294 mg/dl (65-105)
--- NOTE | 2022-09-27 12:39 | PM.IMPN ---
Progress Note: A&P Assessment and Plan (1) Diabetic infection of left foot: Code(s): E11.628 - Type 2 diabetes mellitus with other skin complications; L08.9 - Local infection of the skin and subcutaneous tissue, unspecified Status: Acute Assessment and Plan: Wound looks good. No further signs of infection. Physical therapy to see for crutch training and assistance in ambulation. Will have wound nurses see patient tomorrow to evaluate for possible wound VAC. cultures are showing Staph aureus although sensitivities are pending. Cultures were made 13 showed methicillin sensitive Staph aureus and I suspect these will show the same. Hopefully patient can go home in a couple of days on oral antibiotics wound care and an assistive device for walking. (2) Insulin dependent type 2 diabetes mellitus: Code(s): E11.9 - Type 2 diabetes mellitus without complications; Z79.4 - detention (current) use of insulin Status: Chronic Assessment and Plan: Patient reports blood sugar 300-500 at home frequently. On SSI. A1c 10.6 which is more controlled than prior results. 09/26: Patient reports he is serious about better glucose control 09/27: Blood sugars remain elevated in the mid to upper 200s primarily (3) Hypertension: Code(s): I10 - Essential (primary) hypertension Status: Acute Assessment and Plan: Stable, BP reviewed on 09/27 Plan Walking moot on order likely to arrive tomorrow. Patient will have wound care consult tomorrow. Oral antibiotic conversion tomorrow. PT for crutch training DC when ok with Surgery Time Spent With Patient Time with patient: 15 - 25 minutes Subjective Date/time seen: 09/27/22 12:39 Interval history: 09/24: Patient reports he is generally feeling okay except for pain in his left foot. He he was admitted due to MRSA positive wound culture with worsening swelling and drainage from the left foot. A foreign body was removed in the emergency department few days ago prior to admission. No fever chills. MRI was completed to look for osteomyelitis but a continued foreign body is noted. Surgery consulted. 09/25: Patient seen this morning states that he is feeling okay. He denies fever or chills. Only mild drainage the foot but there is worsening swelling. Surgery saw patient yesterday evening and plans to go to the operating room today. 09/26: Patient seen this afternoon states that he is feeling better today. Patient reports that the surgeon changed dressing and and showed him a picture the debridement and that threw him off for a little while because he did not realize how bad it was going to look. Patient reports that he is now serious about better controlling his diabetes. 09/27: No acute events overnight. Patient states he is feeling well. Still awaiting walking boot for discharge which will likely happen tomorrow. Will discuss transition to oral antibiotics with ID pharmacist before discharge tomorrow. Wound cultures growing Staph aureus, susceptibilities to follow. Review of Systems Review of Systems: All systems reviewed & are unremarkable except as noted in HPI and below Exam Narrative: General: Well-developed, nontoxic-appearing male in the semi-Pereira position in bed in no distress. HEENT: PERRL, EOMI. Sclera anicteric. Oral mucosa moist. Neck: Supple. No JVD Respiratory: Lungs are clear to auscultation bilaterally. Cardiovascular: Regular rate and rhythm with S1-S2. Gastrointestinal: Abdomen is soft, nontender, and nondistended with positive bowel sounds. Skin: Warm and dry. Dressing clean, dry, intact. Wound bed appears clean. Extremities: No cyanosis or clubbing. Mild left joanne ankle edema. Radial and pedal pulses intact. Neurological: Alert. Cranial nerves 2-12 are grossly intact. No gross focal deficits to casual conversation. Psychiatric: Pleasant and cooperative with normal mood and affect. Objective Data Vital Signs Vital Sig
--- NOTE | 2022-09-27 13:43 | PM.PNGS ---
Progress Note: A&P Assessment and Plan (1) Diabetic infection of left foot: Code(s): E11.628 - Type 2 diabetes mellitus with other skin complications; L08.9 - Local infection of the skin and subcutaneous tissue, unspecified Status: Acute Assessment and Plan: Wound looks good. No further signs of infection. Physical therapy to see for crutch training and assistance in ambulation. Will have wound nurses see patient tomorrow to evaluate for possible wound VAC. cultures are showing Staph aureus although sensitivities are pending. Cultures were made 13 showed methicillin sensitive Staph aureus and I suspect these will show the same. Hopefully patient can go home in a couple of days on oral antibiotics wound care and an assistive device for walking. (2) Insulin dependent type 2 diabetes mellitus: Code(s): E11.9 - Type 2 diabetes mellitus without complications; Z79.4 - termite treater (current) use of insulin Status: Chronic Subjective Subjective Date/Time Seen: 09/27/22 13:43 Post Op day: 2 Patient reports: no new complaints and afebrile Interval history: Got crutches and has been having somewhat of an awkward time with them. Exam Extrem: Left lower extremity: foot (Wound looks good. Not much change from yesterday. Redressed) Objective Data Vital Signs Vital Signs: Vital Signs - 24 hr 09/26/22 14:00 09/26/22 21:40 09/27/22 06:00 Temperature 37.1 C 36.4 C L 35.9 C L Pulse Rate 73 74 67 Respiratory Rate 16 16 14 Blood Pressure 121/61 125/67 141/79 H Pulse Oximetry 96 97 97 Oxygen Delivery 09/27/22 08:00 Temperature Pulse Rate Respiratory Rate Blood Pressure Pulse Oximetry Oxygen Delivery Room Air Intake/Output Intake/Output: Intake & Output 09/24/22 09/25/22 09/26/22 09/27/22 23:59 23:59 23:59 23:59 Intake Total 2580 1500 3060 1600 Output Total 3475 1700 4350 2400 Balance -895 -200 -1290 -800 Meds/Results Medications: Active Medications Generic Name Dose Route Start Last Admin Trade Name Freq PRN Reason Stop Dose Admin Acetaminophen 650 mg 09/23/22 14:31 09/26/22 21:32 Acetaminophen 325 Mg Tablet PO 650 mg Q6H PRN Administration Mild Pain (1-3) or Fever Hydrocodone Bitart/Acetaminophen 1 tab 09/23/22 14:31 09/26/22 17:39 Hydrocodone/Acetaminophen (*Crx) 5-325 Mg Tablet PO 1 tab Q6H PRN Administration Pain Rated 4-6 Cyanocobalamin 2,000 mcg 09/24/22 09:00 09/27/22 09:04 Cyanocobalamin 1,000 Mcg Tablet PO 2,000 mcg DAILY ALEX Administration Cyanocobalamin 500 mcg 09/24/22 09:00 09/27/22 09:04 Cyanocobalamin 500 Mcg Tablet PO 500 mcg DAILY ALEX Administration Dextrose 12.5 gm 09/23/22 14:30 Dextrose 50% 25 Gm/50 Ml Syringe IV PUSH PRN PRN Hypoglycemia Protocol Enoxaparin Sodium 40 mg 09/24/22 09:00 09/27/22 09:03 Enoxaparin 40 Mg/0.4 Ml Syringe SUB-Q 40 mg DAILY ALEX Administration Glimepiride 2 mg 09/24/22 08:00 09/27/22 09:04 Glimepiride 2 Mg Tablet PO 2 mg DAILY@0800 ALEX Administration Glucagon 1 mg 09/23/22 14:30 Glucagon For Inj 1 Mg Vial IM PRN PRN Hypoglycemia Protocol Glucose 15 gm 09/23/22 14:30 Glucose Oral Gel 15 Gm Of Glucse In 37.5 Gm Tube PO PRN PRN Hypoglycemia Protocol Cefepime HCl 2 gm in 50 mls @ 100 mls/hr 09/24/22 02:00 09/27/22 02:45 Maxipime 2 Gm/Ns 50 Ml IVPB Infused Q12H ALEX Infusion Metronidazole 500 mg in 100 mls @ 100 mls/hr 09/23/22 22:00 09/27/22 07:08 Flagyl 500 Mg/Iso Soln 100 Ml IVPB Infused Q8HR ALEX Infusion Dextrose 1,000 mls @ 100 mls/hr 09/23/22 14:30 Dextrose 5% 1,000 Ml IVPB PRN PRN Hypoglycemia Protocol Vancomycin HCl 1,750 mg in 500 mls @ 250 mls/hr 09/25/22 10:00 09/27/22 11:03 Vancomycin 1,750 Mg/D5w 500 Ml IVPB Infused Q8H ALEX Infusion Insulin Aspart 3 - 6 units 09/23/22 17:00 09/27/22 12:06 Insulin Aspart (*[facility])
[2022-09-27 14:00] VITALS: BP 107/61; PULSE 76; RESP 16; TEMP 36.1; O2SAT 98
[2022-09-27 16:23] LABS: Glucose Point of Care 256 mg/dl (65-105)
[2022-09-27] MEDS: INSULIN GLARGINE (*BKC) 100 UNITS/ML 22 UNITS SUB-Q (16:55)
[2022-09-27 19:47] LABS: Glucose Point of Care 236 mg/dl (65-105)
[2022-09-27 20:55] VITALS: BP 133/70; PULSE 69; RESP 16; TEMP 36.9; O2SAT 98
[2022-09-27] MEDS: ACETAMINOPHEN 325 MG TABLET 650 MG PO (22:16)
[2022-09-28] MEDS: CEFEPIME 2 GM/NS 50 ML 2 GM/50 ML BAG IVPB (02:00)
[2022-09-28 06:00] VITALS: BP 129/71; PULSE 71; RESP 18; TEMP 36.1; O2SAT 98
[2022-09-28] MEDS: metroNIDAZOLE 500 MG/ISO 100ML 500 MG/100 ML BAG 100 MG IVPB (06:26)
[2022-09-28 06:51] LABS: Basophils Absolute Auto 0.1 K/mm3 (0.0-0.1); Basophils Percent Auto 0.9 % (0.2-1.2); Eosinophils Absolute Auto 0.3 K/mm3 (0-0.3); Eosinophils Percent Auto 4.8 % (0-4.4); Hematocrit 40.2 % (42.0-52.0); Hemoglobin 12.9 g/dL (14.0-18.0); Immature Granulocyte Absolute 0.09 K/mm3 (0.00-0.031); Immature Granulocyte Percent A 1.5 % (0-0.5); Lymphocytes Absolute Auto 1.41 K/mm3 (0.9-3.2); Lymphocytes Percent Auto 24.3 % (18.3-44.2); Mean Corpuscular HGB Conc 32.1 g/dl (32-36); Mean Corpuscular Hemoglobin 29.7 pg (26-34); Mean Corpuscular Volume 92.4 fl (80-100); Monocytes Absolute Auto 0.6 K/mm3 (0.1-0.6); Neutrophils Absolute Auto 3.3 K/mm3 (1.3-6.7); Neutrophils Percent Auto 57.5 % (45.5-73.1); Platelet Count Result 291 k/mm3 (150-375); Red Blood Count 4.35 M/mm3 (4.6-6.20); Red Cell Distribution Width 12.4 % (11.5-14.5); White Blood Count 5.8 K/mm3 (4.5-10.0)
[2022-09-28 06:56] LABS: Potassium 4.1 mmol/L (3.4-5.0)
[2022-09-28 07:00] LABS: Alanine Aminotransferase 26 U/L (6-50); Albumin Level 3.4 g/dL (3.5-5.1); Alkaline Phosphatase 63 U/L (38-126); Anion Gap 3 mmol/L (8-16); Aspartate Amino Transferase 29 U/L (17-59); Bilirubin,Total 0.4 mg/dL (0.2-1.3); Blood Urea Nitrogen 13 mg/dL (9-20); Carbon Dioxide 33 mmol/L (22-30); Chloride 100 mmol/L (98-107); Estimated CRCL calculation 133 ml/min; Estimated Glomerular Filt Rate > 60; Glucose 221 mg/dL (65-110); Sodium 136 mmol/L (137-145)
[2022-09-28] MEDS: GLIMEPIRIDE 2 MG TABLET PO (08:47)
[2022-09-28] MEDS: CHOLECALCIFEROL 1,000 UNITS TABLET 5000 UNITS PO (08:47)
[2022-09-28] MEDS: PIOGLITAZONE HCL 15 MG TAB BY MOUTH (08:48)
[2022-09-28] MEDS: CYANOCOBALAMIN 500 MCG TABLET PO (08:48)
[2022-09-28] MEDS: ENOXAPARIN 40 MG/0.4 ML SYRINGE SUB-Q (08:48)
[2022-09-28] MEDS: lisinopriL 5 MG TABLET PO (08:48)
[2022-09-28] MEDS: CYANOCOBALAMIN 1,000 MCG TABLET 2000 MCG PO (08:48)
[2022-09-28] MEDS: metFORMIN HCL 500 MG TABLET 1000 MG BY MOUTH ×2 (08:48→17:48)
[2022-09-28] MEDS: ROSUVASTATIN 10 MG TABLET PO (08:48)
--- NOTE | 2022-09-28 11:00 | PM.PNGS ---
Progress Note: A&P Assessment and Plan (1) Diabetic infection of left foot: Code(s): E11.628 - Type 2 diabetes mellitus with other skin complications; L08.9 - Local infection of the skin and subcutaneous tissue, unspecified Status: Acute Assessment and Plan: Wound care nurses consultation appreciated. Agree with wound VAC placement and outpatient will wound VAC care. Sensitivities still pending on abscess cultures but likely is methicillin sensitive Staph aureus. Could probably go home on oral antibiotics and wound VAC Wednesday or Wednesday. Will need to be at heel touch weight-bearing only. Patient will be followed up in the wound clinic. (2) Insulin dependent type 2 diabetes mellitus: Code(s): E11.9 - Type 2 diabetes mellitus without complications; Z79.4 - ocean transportation intermediary (current) use of insulin Status: Chronic Subjective Subjective Date/Time Seen: 09/28/22 11:00 Post Op day: 3 Patient reports: no new complaints and afebrile Exam Extrem: Left lower extremity: foot (First metatarsal wound clean, slowly healing) Objective Data Vital Signs Vital Signs: Vital Signs - 24 hr 09/27/22 14:00 09/27/22 20:55 09/28/22 06:00 Temperature 36.1 C L 36.9 C 36.1 C L Pulse Rate 76 69 71 Respiratory Rate 16 16 18 Blood Pressure 107/61 133/70 129/71 Pulse Oximetry 98 98 98 Intake/Output Intake/Output: Intake & Output 09/25/22 09/26/22 09/27/22 09/28/22 23:59 23:59 23:59 23:59 Intake Total 1500 3060 2900 670 Output Total 1700 4350 4700 1000 Balance -200 -1290 -1800 -330 Meds/Results Medications: Active Medications Generic Name Dose Route Start Last Admin Trade Name Freq PRN Reason Stop Dose Admin Acetaminophen 650 mg 09/23/22 14:31 09/27/22 22:16 Acetaminophen 325 Mg Tablet PO 650 mg Q6H PRN Administration Mild Pain (1-3) or Fever Hydrocodone Bitart/Acetaminophen 1 tab 09/23/22 14:31 09/26/22 17:39 Hydrocodone/Acetaminophen (*Crx) 5-325 Mg Tablet PO 1 tab Q6H PRN Administration Pain Rated 4-6 Cephalexin HCl 500 mg 09/28/22 12:00 Cephalexin 500 Mg Capsule PO 10/05/22 23:59 Q6HR ALEX Cyanocobalamin 2,000 mcg 09/24/22 09:00 09/28/22 08:48 Cyanocobalamin 1,000 Mcg Tablet PO 2,000 mcg DAILY ALEX Administration Cyanocobalamin 500 mcg 09/24/22 09:00 09/28/22 08:48 Cyanocobalamin 500 Mcg Tablet PO 500 mcg DAILY ALEX Administration Dextrose 12.5 gm 09/23/22 14:30 Dextrose 50% 25 Gm/50 Ml Syringe IV PUSH PRN PRN Hypoglycemia Protocol Enoxaparin Sodium 40 mg 09/24/22 09:00 09/28/22 08:48 Enoxaparin 40 Mg/0.4 Ml Syringe SUB-Q 40 mg DAILY ALEX Administration Glimepiride 2 mg 09/24/22 08:00 09/28/22 08:47 Glimepiride 2 Mg Tablet PO 2 mg DAILY@0800 ALEX Administration Glucagon 1 mg 09/23/22 14:30 Glucagon For Inj 1 Mg Vial IM PRN PRN Hypoglycemia Protocol Glucose 15 gm 09/23/22 14:30 Glucose Oral Gel 15 Gm Of Glucse In 37.5 Gm Tube PO PRN PRN Hypoglycemia Protocol Dextrose 1,000 mls @ 100 mls/hr 09/23/22 14:30 Dextrose 5% 1,000 Ml IVPB PRN PRN Hypoglycemia Protocol Insulin Aspart 3 - 6 units 09/23/22 17:00 09/28/22 08:37 Insulin Aspart (*Bkc) 100 Units/Ml SUB-Q Not Given [facility] Protocol Insulin Aspart 1 - 3 units 09/23/22 21:00 09/27/22 22:18 Insulin Aspart (*Bkc) 100 Units/Ml SUB-Q Not Given HS [facility] Protocol Insulin Glargine 22 units 09/23/22 19:55 09/27/22 16:55 Insulin Glargine (*Bkc) 100 Units/Ml SUB-Q 22 units QPM ALEX Administration Lisinopril 5 mg 09/24/22 09:00 09/28/22 08:48 Lisinopril 5 Mg Tablet PO 5 mg DAILY ALEX Administration Metformin HCl 1,000 mg 09/24/22 09:00 09/28/22 08:48 Metformin Hcl 500 Mg Tablet BY MOUTH 1,000 mg BID ALEX Administration Oxycodone/Acetaminophen 1 tablet 09/23/22 19:53 09/27/22 06:07 Oxycodone/Acetaminophen (*Crx
--- NOTE | 2022-09-28 11:34 | PM.IMPN ---
Progress Note: A&P Assessment and Plan (1) Diabetic infection of left foot: Code(s): E11.628 - Type 2 diabetes mellitus with other skin complications; L08.9 - Local infection of the skin and subcutaneous tissue, unspecified Status: Acute Assessment and Plan: Wound care nurses consultation appreciated. Agree with wound VAC placement and outpatient will wound VAC care. Sensitivities still pending on abscess cultures but likely is methicillin sensitive Staph aureus. Could probably go home on oral antibiotics and wound VAC Wednesday or Wednesday. Will need to be at heel touch weight-bearing only. Patient will be followed up in the wound clinic. 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 On SSI. A1c 10.6 which is more controlled than prior results. 09/26: Patient reports he is serious about better glucose control 09/27: Blood sugars remain elevated in the mid to upper 200s primarily 09/28: Blood sugar still in the 200 range. Increased insulin glargine to 30 units q.p.m. (3) Hypertension: Code(s): I10 - Essential (primary) hypertension Status: Acute Assessment and Plan: Stable, BP reviewed on 09/28 Plan Walking boot Wound VAC on order Oral antibiotic conversion today PT for crutch training DC when ok with Surgery Time Spent With Patient Time with patient: 15 - 25 minutes Subjective Date/time seen: 09/28/22 11:34 Interval history: 09/24: Patient reports he is generally feeling okay except for pain in his left foot. He he was admitted due to MRSA positive wound culture with worsening swelling and drainage from the left foot. A foreign body was removed in the emergency department few days ago prior to admission. No fever chills. MRI was completed to look for osteomyelitis but a continued foreign body is noted. Surgery consulted. 09/25: Patient seen this morning states that he is feeling okay. He denies fever or chills. Only mild drainage the foot but there is worsening swelling. Surgery saw patient yesterday evening and plans to go to the operating room today. 09/26: Patient seen this afternoon states that he is feeling better today. Patient reports that the surgeon changed dressing and and showed him a picture the debridement and that threw him off for a little while because he did not realize how bad it was going to look. Patient reports that he is now serious about better controlling his diabetes. 09/27: No acute events overnight. Patient states he is feeling well. Still awaiting walking boot for discharge which will likely happen tomorrow. Will discuss transition to oral antibiotics with ID pharmacist before discharge tomorrow. Wound cultures growing Staph aureus, susceptibilities to follow. 09/28: Patient reports he did not get much sleep last night as he was constantly being interrupted. He denies any new symptoms denies fever chills. Patient was seen by wound care they are ordering a wound VAC for his surgical wound. He was told he would stay in the hospital a couple more days. Antibiotics changed to oral today. Review of Systems Review of Systems: All systems reviewed & are unremarkable except as noted in HPI and below Exam Narrative: General: Well-developed, nontoxic-appearing male in the semi-Pereira position in bed in no distress. HEENT: PERRL, EOMI. Sclera anicteric. Oral mucosa moist. Neck: Supple. No JVD Respiratory: Lungs are clear to auscultation bilaterally. Cardiovascular: Regular rate and rhythm with S1-S2. Gastrointestinal: Abdomen is soft, nontender, and nondistended with positive bowel sounds. Skin: Warm and dry. Dressing clean, dry, intact. Wound bed appears clean. Extremities: No cyanosis or clubbing. Mild left joanne ankle edema. Ra
[2022-09-28] MEDS: CEPHALEXIN 500 MG CAPSULE PO ×3 (11:40→23:07)
[2022-09-28] MEDS: INSULIN ASPART (*BKC) 100 UNITS/ML SUB-Q (11:41)
[2022-09-28 14:00] VITALS: BP 128/67; PULSE 72; RESP 16; TEMP 36.5; O2SAT 98
[2022-09-28 17:10] LABS: Glucose Point of Care 255 mg/dl (65-105)
[2022-09-28] MEDS: INSULIN GLARGINE (*BKC) 100 UNITS/ML 30 UNITS SUB-Q (17:47)
[2022-09-28 20:00] VITALS: PULSE 72; RESP 16; O2SAT 98
[2022-09-28 22:00] VITALS: BP 128/71; PULSE 77; RESP 18; TEMP 37.1; O2SAT 96
[2022-09-28 23:00] LABS: Glucose Point of Care 209 mg/dl (65-105)
[2022-09-29 06:00] VITALS: BP 110/50; PULSE 69; RESP 18; TEMP 36.7; O2SAT 97
[2022-09-29] MEDS: CEPHALEXIN 500 MG CAPSULE PO ×2 (06:19→12:34)
[2022-09-29 06:21] LABS: Basophils Absolute Auto 0.1 K/mm3 (0.0-0.1); Basophils Percent Auto 0.8 % (0.2-1.2); Eosinophils Absolute Auto 0.2 K/mm3 (0-0.3); Eosinophils Percent Auto 3.4 % (0-4.4); Hematocrit 43.3 % (42.0-52.0); Immature Granulocyte Absolute 0.06 K/mm3 (0.00-0.031); Immature Granulocyte Percent A 0.9 % (0-0.5); Lymphocytes Absolute Auto 1.43 K/mm3 (0.9-3.2); Lymphocytes Percent Auto 22.4 % (18.3-44.2); Mean Corpuscular HGB Conc 32.3 g/dl (32-36); Mean Corpuscular Hemoglobin 30.1 pg (26-34); Mean Corpuscular Volume 93.1 fl (80-100); Mean Platelet Volume 9.1 fl (7.4-10.4); Monocytes Absolute Auto 0.7 K/mm3 (0.1-0.6); Monocytes Percent Auto 10.2 % (2.6-8.5); Neutrophils Percent Auto 62.3 % (45.5-73.1); Platelet Count Result 305 k/mm3 (150-375); Red Blood Count 4.65 M/mm3 (4.6-6.20); Red Cell Distribution Width 12.6 % (11.5-14.5); White Blood Count 6.4 K/mm3 (4.5-10.0)
[2022-09-29 06:33] LABS: Alanine Aminotransferase 33 U/L (6-50); Albumin Level 3.5 g/dL (3.5-5.1); Alkaline Phosphatase 61 U/L (38-126); Anion Gap 3 mmol/L (8-16); Aspartate Amino Transferase 35 U/L (17-59); Bilirubin,Total 0.5 mg/dL (0.2-1.3); Blood Urea Nitrogen 16 mg/dL (9-20); Calcium 9.2 mg/dL (8.4-10.2); Carbon Dioxide 29 mmol/L (22-30); Chloride 101 mmol/L (98-107); Estimated CRCL calculation 133 ml/min; Estimated Glomerular Filt Rate > 60; Glucose 229 mg/dL (65-110); Potassium 4.1 mmol/L (3.4-5.0); Sodium 133 mmol/L (137-145)
[2022-09-29 07:59] LABS: Glucose Point of Care 239 mg/dl (65-105)
--- NOTE | 2022-09-29 08:37 | PCPTNOTE ---
Attempted PT evaluation, pt prefers to wait to do PT until portable wound vac is given to him. RN aware. Carlton feliciano.
[2022-09-29] MEDS: GLIMEPIRIDE 2 MG TABLET PO (09:17)
[2022-09-29] MEDS: CHOLECALCIFEROL 1,000 UNITS TABLET 5000 UNITS PO (09:17)
[2022-09-29] MEDS: ROSUVASTATIN 10 MG TABLET PO (09:18)
[2022-09-29] MEDS: metFORMIN HCL 500 MG TABLET 1000 MG BY MOUTH (09:18)
[2022-09-29] MEDS: PIOGLITAZONE HCL 15 MG TAB BY MOUTH (09:18)
[2022-09-29] MEDS: ENOXAPARIN 40 MG/0.4 ML SYRINGE SUB-Q (09:19)
[2022-09-29] MEDS: CYANOCOBALAMIN 1,000 MCG TABLET 2000 MCG PO (09:20)
[2022-09-29] MEDS: lisinopriL 5 MG TABLET PO (09:20)
[2022-09-29] MEDS: CYANOCOBALAMIN 500 MCG TABLET PO (09:21)
[2022-09-29] MEDS: INSULIN ASPART (*BKC) 100 UNITS/ML SUB-Q ×2 (09:24→12:34)
--- NOTE | 2022-09-29 09:25 | PCOTNOTE ---
Attempted to see Patient this A.M. Patient declined seeing therapist until his has brought up his clothing and then he will listen to instruction on putting on/off clothing with the precautions of the wound vac on Left LE . RN notified and will contact therapist at this time for treatment session.
--- NOTE | 2022-09-29 09:53 | PM.DS ---
DS: Admitting Diagnosis Discharge Date 09/29/2022 Admitting Diagnosis Cellulitis of left foot Diabetic infection of left foot Type 2 diabetes mellitus with hyperglycemia Hypertension Hyperlipidemia DS: Discharge Diagnosis Discharge Diagnosis (1) Diabetic infection of left foot: Code(s): E11.628 - Type 2 diabetes mellitus with other skin complications; L08.9 - Local infection of the skin and subcutaneous tissue, unspecified Status: Acute (2) Insulin dependent type 2 diabetes mellitus: Code(s): E11.9 - Type 2 diabetes mellitus without complications; Z79.4 - half-way (current) use of insulin Status: Chronic (3) Hypertension: Code(s): I10 - Essential (primary) hypertension Status: Acute (4) Uncontrolled diabetes mellitus: Qualifiers: Diabetes mellitus type: type 2 Glycemic state: with hyperglycemia Qualified Code(s): E11.65 - Type 2 diabetes mellitus with hyperglycemia Code(s): E11.65 - Type 2 diabetes mellitus with hyperglycemia Status: Chronic (5) Hypertension associated with type 2 diabetes mellitus: Code(s): E11.59 - Type 2 diabetes mellitus with other circulatory complications; I10 - Essential (primary) hypertension Status: Chronic Plan Discharge home with wound VAC, follow-up in wound clinic in 2 weeks DS: Summary Hospital Course Reason for hospitalization: Patient was admitted to the hospital for left foot cellulitis after foreign body removed several days prior in the emergency department. Hospital Course: MRI was obtained due to persistent foot infection which showed a small residual foreign body. No osteomyelitis noted. Surgery was consulted and decided to take patient to the operating room for wound debridement. Patient had necrotic tissue that required extensive debridement. Hemoglobin A1c was 10.6 which is better than previous readings but still poorly controlled. Patient reports he will take his diabetes more seriously now. Wound care consulted and patient fit with Wound Vac. Walking boot and crutches for ambulation, non weightbearing on ball of left foot. Wound culture was MSSA. Patient transitioned to Keflex which will be continued for total of 10 days therapy after debridement. Status at Discharge Cognitive/behavioral status at discharge: Awake, alert, oriented and pleasant Functional status at discharge: independent ambulation (Crutches and walking boot nonweightbearing ball of left foot) Overall status at discharge: patient is progressing back to baseline Time Spent with Patient Time attestation: Total time spent providing and/or coordinating discharge services: Time spent: Greater than 30 minutes Exam Narrative: General: Well-developed, nontoxic-appearing male in the semi-Pereira position in bed in no distress. HEENT: PERRL, EOMI. Sclera anicteric. Oral mucosa moist. Neck: Supple. No JVD, chronic left lower cervical discomfort with muscle spasm palpable Respiratory: Lungs are clear to auscultation bilaterally. Cardiovascular: Regular rate and rhythm with S1-S2. Gastrointestinal: Abdomen is soft, nontender, and nondistended with positive bowel sounds. Skin: Warm and dry. Wound VAC in place with minimal drainage left foot wound, walking boot in place and use crutches Extremities: No cyanosis or clubbing. Mild left joanne ankle edema. Radial and pedal pulses intact. Neurological: Alert. Cranial nerves 2-12 are grossly intact. No gross focal deficits to casual conversation. Psychiatric: Pleasant and cooperative with normal mood and affect. DS: Data Data Completed and Pending Completed studies during hospitalization: Foot MRI Labs on day of discharge: Labs from last 24 hours 09/29/22 09/29/22 09/28/22 07:54 05:38 20:35 WBC 6.4 RBC 4.65 Hgb 14.0 Hct 43.3 MCV 93.1 MCH 30.1 MCHC 32.3 RDW 12.6 Plt Count 305 MPV 9.1 Immature Gran % (Auto) 0.9 H Neut % (Auto) 62.3
[2022-09-29 12:07] LABS: Glucose Point of Care 229 mg/dl (65-105)
[2022-09-29 12:45] LABS: Glucose Point of Care 169 mg/dl (65-105)
--- NOTE | 2022-09-29 12:56 | PCOTNOTE ---
Per Patient and therapist conversation. Patient would see therapist for treatment session when his arrived. RN notified and when Patient's arrived, Patient verbalized he did not need the OT treatment session, he knows everything already and does not need the service prior to him being discharged. Patient discharged home with his .
[2022-09-29 14:13] LABS: Glucose Point of Care 197 mg/dl (65-105)
== END 2022-09-29 13:00 | disposition home health service (06) | DRG 623 ==
LOC: ANHED 13:45 → ANH3MEDSUR 14:01
PROVIDERS: Physician Assistant; Surgery; Admitting Provider Hospitalist; Emergency Provider Emergency Medicine; PCP Internal Medicine; Visit Provider Nurse Practitioner
PROC: 0KBW0ZZ Excision of Left Foot Muscle, Open Approach (ICD-10-PCS; principal; 2022-09-25 12:00)
DX: E11.628 Type 2 diabetes mellitus with other skin complications (principal); L02.612 Cutaneous abscess of left foot; L03.116 Cellulitis of left lower limb; E11.65 Type 2 diabetes mellitus with hyperglycemia; E11.40 Type 2 diabetes mellitus with diabetic neuropathy, unspecified; E78.5 Hyperlipidemia, unspecified; I10 Essential (primary) hypertension; M79.5 Residual foreign body in soft tissue; B95.61 Methicillin susceptible Staphylococcus aureus infection as the cause of diseases classified elsewhere; Z79.4 Long term (current) use of insulin; Z87.442 Personal history of urinary calculi; Z87.891 Personal history of nicotine dependence
CPT/HCPCS: 36415; 73630; 73720; 80048; 80053; 80202; 82565; 82948; 83036; 83605; 83735; 85025; 85027; 85610; 85730; 87040; 87070; 87075; 87147; 87181; 87186; 87205; 93005; 96366; 96367; 96372; 96375; 96376; 97161; 97165; 99285; A9270; A9577; G0378; J0692; J1650; J1815; J1836; J2250; J2704; J3010; J3370; J7030; J7120

== ENCOUNTER 2023-01-11 08:35 | Outpatient (CLI) | payer MEDICARE, SELFPAY ==
[2023-01-11 19:22] LABS: Hematocrit 44.2 % (42.0-52.0); Hemoglobin 14.1 g/dL (14.0-18.0); Mean Corpuscular HGB Conc 31.9 g/dl (32-36); Mean Corpuscular Hemoglobin 29.9 pg (26-34); Mean Corpuscular Volume 93.8 fl (80-100); Mean Platelet Volume 10.4 fl (7.4-10.4); Platelet Count Result 225 k/mm3 (150-375); Red Blood Count 4.71 M/mm3 (4.6-6.20); Red Cell Distribution Width 13.2 % (11.5-14.5); White Blood Count 5.3 K/mm3 (4.5-10.0)
[2023-01-11 20:47] LABS: Alanine Aminotransferase 27 U/L (6-50); Albumin Level 4.1 g/dL (3.5-5.1); Alkaline Phosphatase 57 U/L (38-126); Anion Gap 10 mmol/L (8-16); Aspartate Amino Transferase 39 U/L (17-59); Bilirubin,Total 1.1 mg/dL (0.2-1.3); Blood Urea Nitrogen 23 mg/dL (9-20); Calcium 9.3 mg/dL (8.4-10.2); Carbon Dioxide 27 mmol/L (22-30); Chloride 97 mmol/L (98-107); Cholesterol 140 mg/dL (0-200); Estimated Glomerular Filt Rate > 60; Glucose 210 mg/dL (65-110); HDL Direct 33 mg/dL; Potassium 4.5 mmol/L (3.4-5.0); Sodium 134 mmol/L (137-145); Triglycerides 115 mg/dL (<150)
[2023-01-11 20:58] LABS: LDL Cholesterol Direct 80 mg/dL
[2023-01-11 21:59] LABS: Folic Acid 11.7 ng/mL (2.76->20); Vitamin B12 > 1000.0 pg/mL (239-931)
[2023-01-11 22:59] LABS: Hemoglobin A1C 11.2 % (<5.7)
== END 2023-01-11 08:36 | disposition home or self-care (01) ==
PROVIDERS: PCP Internal Medicine; Visit Provider Internal Medicine
DX: E11.65 Type 2 diabetes mellitus with hyperglycemia (principal); E78.5 Hyperlipidemia, unspecified; R53.83 Other fatigue
CPT/HCPCS: 36415; 80053; 80061; 82607; 82746; 83036; 84443; 85027

== ENCOUNTER 2023-01-18 09:12 | Outpatient (RCR) | payer MEDICARE, SELFPAY ==
--- NOTE | 2023-01-18 10:06 | PTOPEVAL1 ---
Assessment and note entered by Mesfin Everett Evaluation Information Assessment Status Evaluation Diagnosis cervical radiculopathy Onset 09/17/22 Subjective Information Pt. reports that around the second week of September he slipped and fell while moving a refrigerator. He states that he was on steps and hit his back on the steps as he fell. He reports that refrigerator fell directly onto him. He states that all pain is on the left side of his neck and pain raidates into the left arm with numbness noted. He states that his numbness is constant. He reports that he attempted chiropractic to help improve his mobility. He states that he had CT scan that did not reveal anything signficant. He states that he got temporary relieft with chiropractic. He reports that pain does wake him at night. He states that his goal is to relieve his neck and arm pain. Reported Pain Level Pain Score 3: Self Report Assessment PT Clinical Summary Pt. is a 67 year old male who enters the clinic with cervical radiculopathy. He currently presents with limited left cervical rotation and lateral flexion, impaired postural awareness, impaired u.e. strength and pain. Continued skilled PT is indicated in order to improve these areas to allow for improved comfort with IADL performance and improve sleep habits. Plan of Care Interventions Electrical Stimulation,Hot Pack/Cold Pack,Manual Therapy,Mechanical Traction,Neuro Re-education, Patient/Caregiver Educati,Therapeutic Activities, Therapeutic Exercise PT Services Indicated Yes Treatment Frequency and 2x/week x 10 visits Duration These treatments will address the objective and functional deficits as defined above. The patient will be advanced safely and appropriately in order for the patient to progress towards his/her prior level of function. Additional exercises will be introduced and as well as a comprehensive home exercise program upon discharge, if needed, ?to ensure carryover of functional gains achieved in the clinic. This treatment plan has been reviewed and agreement upon by the patient.
--- NOTE | 2023-01-18 10:06 | OPREHPOC ---
Outpatient Therapy Plan of Care This is a Multidisciplinary Plan of Care that may contain components documented by all disciplines (PT, OT, and ST.) PT Problem 1 PT Problem #1 Knowledge Deficit PT Goal 1 Goal Independent with a HEP addressing strength and postural awareness Target Visit 2 PT Problem 2 PT Problem #2 Pain PT Goal 1 Goal Pt. will reduce pain reports to 5/10 at worst and report being able to sleep through the night without pain disturbance. Target Visit 10 PT Problem 3 PT Problem #3 Impaired Range of Motion PT Goal 1 Goal Pt. will demonstrate 70 degrees or greater of left c-spine rotation and 40 degrees left c-spine lateral flexion to improve his visual field. Target Visit 10 PT Problem 4 PT Problem #4 Impaired Strength PT Goal 1 Goal Pt. will present with 4+/5 gross proximal u.e. strength on right and left. Target Visit 10
== END 2023-02-05 20:00 | disposition home or self-care (01) ==
LOC: CHSPT 09:12
PROVIDERS: Visit Provider Internal Medicine
DX: M54.12 Radiculopathy, cervical region (principal)
CPT/HCPCS: 97012; 97014; 97110; 97140; 97150; 97161; G0283